=== PATIENT | male | born 1945 | race Caucasian/White ===

== ENCOUNTER → 2017-12-07 08:56 | Outpatient (CLI) | payer MEDICARE, SELFPAY ==
[2017-12-07 12:08] LABS: Absolute Neutrophil Count 3.5 X10^3/uL (2.0-7.7); Basophil# 0.02 X10^3/uL; Basophil% 0.3 % (0-1); Eosinophil# 0.15 X10^3/uL; Eosinophils% 2.6 % (0-5); Hematocrit 42.9 % (40-54); Hemoglobin 13.6 g/dl (13.0-16.5); Lymphocyte % 27.6 % (19-41); Mean Corp Hgb Conc 31.7 g/gl (32-36); Mean Corpuscular Hgb 25.4 pg (27.0-32.0); Mean Platelet Vol. 10.3 fl (6.2-12.0); Monocyte# 0.52 X10^3/uL; Neutrophil % 60.5 % (47-70); Platelet Count 204 K/mm3 (150-450); RBC Distribution Width CV 16.3 % (11.6-14.6); RBC Distribution Width SD 47.2 fl (35.1-43.9); Red Blood Count 5.36 M/mm3 (4.6-6.2); White Blood Count 5.8 K/mm3 (4.4-11.0)
[2017-12-07 12:10] LABS: POSITIVE COUNT NO; POSITIVE DIFFERENTIAL NO; POSITIVE MORPHOLOGY NO
[2017-12-07 12:35] LABS: ALB/GLOB Ratio 0.9 RATIO (0.9-2.4); AST(SGOT) 15 U/L (15-37); Alanine Aminotransfer ALT/SGPT 35 U/L (16-61); Albumin, Serum 3.4 g/dL (3.2-5.0); Alkaline Phosphatase 78 U/L (45-117); Anion Gap 10 (5-15); BUN 13 mg/dL (7-18); BUN/Creat Ratio 13.4 RATIO (10-20); Calcium,Total 8.5 mg/dL (8.5-10.1); Chloride 107 mmol/L (98-107); Cholesterol 143 mg/dL (200); Creatinine, Serum 0.97 mg/dL (0.70-1.30); EST Glomerular Filtration Rate 80 mL/min (>60); Est Glom Filt Rate - Afr Amer 97 mL/min (>60); Globulin 3.8 g/dL (2.2-4.2); Glucose 92 mg/dL (74-106); High Density Lipoprotein 22 mg/dL; PSA,Total - Annual Screen 1.01 ng/mL (0.00-4.00); Protein, Total 7.2 g/dL (6.4-8.2); Sodium Level 141 mmol/L (136-145); Triglycerides 182 mg/dL; Very Low Density Lipoprotein 36 mg/dL (5-40)
== END ==
PROVIDERS: Family Provider Family Medicine; PCP Family Medicine; Visit Provider Family Medicine
DX: Z00.01 Encounter for general adult medical examination with abnormal findings (principal); Z12.5 Encounter for screening for malignant neoplasm of prostate; I25.10 Atherosclerotic heart disease of native coronary artery without angina pectoris; I10 Essential (primary) hypertension; E78.5 Hyperlipidemia, unspecified
CPT/HCPCS: 36415; 80053; 80061; 84153; 85025; G0103

== ENCOUNTER → 2018-12-06 08:14 | Outpatient (CLI) | payer MEDICARE, OTHER, SELFPAY ==
[2018-12-06 12:38] LABS: Absolute Neutrophil Count 4.1 X10^3/uL (2.0-7.7); Basophil# 0.03 X10^3/uL; Basophil% 0.5 % (0-1); Eosinophil# 0.14 X10^3/uL; Eosinophils% 2.2 % (0-5); Hematocrit 44.7 % (40-54); Hemoglobin 14.1 g/dL (13.0-16.5); Lymphocyte % 23.8 % (19-41); Mean Corp Hgb Conc 31.5 g/dL (32-36); Mean Corpuscular Hgb 26.4 pg (27.0-32.0); Mean Corpuscular Volume 83.7 fL (80-94); Mean Platelet Vol. 11.1 fl (6.2-12.0); Monocyte# 0.55 X10^3/uL; Monocyte% 8.7 % (0-10); NRBC Flagged by Analyzer 0 % (0-5); Neutrophil # 4.05 X10^3/uL (2.7-7.7); Neutrophil % 64.5 % (47-70); Platelet Count 196 K/mm3 (150-450); RBC Distribution Width CV 15.9 % (11.6-14.6); RBC Distribution Width SD 48.8 fl (35.1-43.9); Red Blood Count 5.34 M/mm3 (4.6-6.2); White Blood Count 6.3 K/mm3 (4.4-11.0)
[2018-12-06 13:13] LABS: ALB/GLOB Ratio 1.2 RATIO (0.9-2.4); AST(SGOT) 18 U/L (15-37); Alanine Aminotransfer ALT/SGPT 32 U/L (16-61); Albumin, Serum 3.8 g/dL (3.2-5.0); Alkaline Phosphatase 73 U/L (45-117); Anion Gap 6 (5-15); BUN 16 mg/dL (7-18); BUN/Creat Ratio 14.7 RATIO (10-20); Calcium,Total 8.5 mg/dL (8.5-10.1); Chloride 108 mmol/L (98-107); Cholesterol 131 mg/dL (200); Creatinine, Serum 1.09 mg/dL (0.70-1.30); EST Glomerular Filtration Rate 70 mL/min (>60); Est Glom Filt Rate - Afr Amer 85 mL/min (>60); Globulin 3.3 g/dL (2.2-4.2); Glucose 107 mg/dL (74-106); High Density Lipoprotein 27 mg/dL; Potassium 4.1 mmol/L (3.5-5.1); Protein, Total 7.1 g/dL (6.4-8.2); Sodium Level 139 mmol/L (136-145); Triglycerides 126 mg/dL; Very Low Density Lipoprotein 25 mg/dL (5-40)
== END ==
PROVIDERS: Family Provider Family Medicine; PCP Family Medicine; Visit Provider Family Medicine
DX: I25.10 Atherosclerotic heart disease of native coronary artery without angina pectoris (principal); I10 Essential (primary) hypertension; E78.5 Hyperlipidemia, unspecified
CPT/HCPCS: 36415; 80053; 80061; 85025

== ENCOUNTER → 2018-12-09 14:26 | Outpatient (CLI) | payer MEDICARE, OTHER, SELFPAY ==
[2018-12-09 15:13] LABS: Hemoglobin A1c 5.7 % (4.2-6.3)
== END ==
PROVIDERS: Family Provider Family Medicine; PCP Family Medicine; Visit Provider Family Medicine
DX: R73.01 Impaired fasting glucose (principal)
CPT/HCPCS: 83036

== ENCOUNTER → 2019-09-12 06:17 | Outpatient (CLI) | payer MEDICARE, OTHER, SELFPAY ==
--- NOTE | 2019-09-12 06:24 | ECHOCS_ITS ---
Reason For Study: CAD, new onset DYSPNEA Procedure This was a 2D Doppler, Color Flow transthoracic echocardiogram. The study was technically difficult. Due to body habitus. Contrast injection was performed. Exam performed in department. Left Ventricle Mildly dilated left ventricle. Mild segmental systolic dysfunction (see wall motion). The estimated ejection fraction is 45 %. Diastolic function is indeterminate. Mid-inferoseptal : Hypokinetic. Mid- anteroseptal : Hypokinetic. Holmes : Hypokinetic. Right Ventricle Normal RV size. Normal systolic function. Atria Normal left atrium. Normal right atrium. No doppler evidence for ASD. Mitral Valve There is no mitral annular calcification. Normal mitral valve. Trivial mitral valve insufficiency. Tricuspid Valve Normal tricuspid valve. Trivial tricuspid valve insufficiency. Right ventricular systolic pressure estimated to be 22 mmHg. Aortic Valve Trisinus/trileaflet aortic valve. Normal aortic valve. Pulmonic Valve The pulmonic valve is not well visualized. Great Vessels Normal sized aortic root. Pericardium/Pleural No pericardial effusion. Medication Diluted definity 4.0ml given slow IV push to enhance endocardial definition. MMode/2D Measurements & Calculations LVIDd: 5.9 cm IVSd: 1.0 cm Ao root diam: 2.9 cm LVIDs: 4.2 cm LVPWd: 0.97 cm RVDd: 3.0 cm FS: 29.1 % LAV(MOD-bp): 77.4 ml LA A4 area: 21.8 cm2 LA dimension(2D): 4.0 cm LAV(MOD-bp) Indexed: 37.1 ml/m2 LAV(MOD-sp2): 77.0 ml LAV(MOD-sp4): 70.3 ml RA A4 area: 18.0 cm2 Time Measurements MV dec time: 0.20 sec Doppler Measurements & Calculations MV E max nathan: 82.3 cm/sec Lat Peak E' Nathan: 5.9 cm/sec Med Peak E' Nathan: 6.6 cm/sec MV A max nathan: 84.2 cm/sec E/E' lat: 13.9 E/E' med: 12.4 MV E/A: 0.98 Ao V2 max: 120.8 cm/sec LV V1 max: 120.1 cm/sec PA V2 max: 66.7 cm/sec Ao max P.8 mmHg LV V1 max P.8 mmHg TR max nathan: 217.3 cm/sec TR max P.9 mmHg Interpretation Summary The study was technically difficult. Contrast injection was performed. Mildly dilated left ventricle. Mild segmental systolic dysfunction (see wall motion). The estimated ejection fraction is 45 %. Trivial mitral valve insufficiency. Trivial tricuspid valve insufficiency. Right ventricular systolic pressure estimated to be 22 mmHg. Diastolic function is indeterminate. Ordering Physician: Dalton^Grace^^^ Referring Physician: Grace Hoffman Performed By: Yumiko Moffett, ADRIANA, RVT
--- NOTE | 2019-09-12 09:11 | STRESSREP_ITS ---
Stress Test Report Date: 09-12-2019 Procedure: Exercise tolerance test/imaging study Indications: Shortness of breath/dyspnea on exertion; CAD; PCI Consent: Per the patient Procedure: The patient exercised on a Alejandro protocol for 4 minutes and 30 seconds completing Stage I and 1 minute and 30 seconds of Stage II achieving a peak heart rate of 133 bpm (91 % predicted maximal heart rate) with a peak blood pressure 210/80 mmHg and a peak MET capacity of 6 METs. The baseline ECG demonstrated normal sinus rhythm; low voltage QRS. The peak exercise ECG demonstrated somatic/motion artifact with no obvious ECG changes. There was a rare PVC during exercise and recovery and an isolated ventricular couplet during recovery. The functional capacity was considered decreased. There was no complaint of chest discomfort during exercise or recovery. The examination was discontinued secondary to shortness of breath/dyspnea. Impression: 1. Technically adequate (percent predicted maximal heart rate greater than 85%) exercise tolerance test 2. Peak exercise ECG with somatic/motion artifact with no obvious ECG changes 3. There was a rare PVC during exercise and recovery and an isolated ventricular couplet during recovery 4. Blood pressure response: Exaggerated blood pressure response 5. Nuclear images pending Myocardial perfusion imaging study: Technique: The patient was injected with 14.5 mCi of technetium 99m Cardiolite and subsequently rest SPECT Cardiolite nuclear imaging was obtained in the horizontal long, vertical long, and short axis views. The patient exercised on a Alejandro protocol for 4 minutes and 30 seconds completing Stage I and 1 minute and 30 seconds of Stage II achieving a peak heart rate of 133 bpm (91 % predicted ma ximal heart rate) with a peak blood pressure 210/80 mmHg and a peak MET capacity of 6 METs. The patient was injected with 44.1 mCi of technetium 99m Cardiolite and subsequently stress SPECT Cardiolite nuclear imaging was obtained in the horizontal long, vertical long, and short axis views. A gated Cardiolite study at peak stress was obtained. Interpretation: Rest and stress SPECT Cardiolite nuclear imaging status post realignment, normalization, and attenuation correction, demonstrates the absence of myocardial perfusion/tracer uptake in portions of the basal to distal interventricular septal segments, distal anterior, anterior apical, and septal apical segments without significant change between rest and stress. There is diminished end systolic thickening and brightening in the aforementioned areas. The gated Cardiolite study demonstrates diminished myocardial thickening and inward wall motion. The reported LVEF is 48 %. Impression: 1. Rest and stress SPECT Cardiolite nuclear imaging demonstrate myocardial perfusion changes appearing compatible with an area of previous myocardial injury/infarction involving portions of the interventricular septum, distal anterior, anteroapical, and septal apical segments with no myocardial perfusion changes considered diagnostic for associated stress-induced myocardial ischemia. 2. The gated Cardiolite study reports an LVEF of 48 %. This note was generated with [employer] software. It may contain incorrect words, spelling, and punctuation that were not noted in checking the note before signing.
== END ==
PROVIDERS: PCP Family Medicine; Referring Provider Family Medicine; Visit Provider Family Medicine
DX: I25.10 Atherosclerotic heart disease of native coronary artery without angina pectoris (principal)
CPT/HCPCS: 78452; 93017; 93306; A9500; Q9957; A4216; C8929; J2785

== ENCOUNTER → 2019-09-13 15:36 | Outpatient (CLI) | payer MEDICARE, OTHER, SELFPAY ==
[2019-09-13 14:51] VITALS: BMI 33.1
--- NOTE | 2019-09-13 15:39 | RAD_ITS ---
STUDY: X-RAY CHEST REASON FOR EXAM: Male, 74 years old. CHF, SOB TECHNIQUE: Frontal and lateral views of the chest. COMPARISON: None. FINDINGS: The lungs are clear and expanded. Tiny calcified granuloma of the mid right lung. There is no demonstrated pleural abnormality. Normal size heart. Normal mediastinum and carly. Normal visualized pulmonary arteries. Normal visualized aortic arch and descending thoracic aorta. There are diffuse degenerative changes of the visualized thoracic spine. Normal visualized ribs, clavicles, and shoulders. There is no demonstrated abnormality of the visualized soft tissue structures of the upper abdomen. RAD/Chest PA and Lateral IMPRESSION: No definite acute or significant abnormality seen. Electronically Signed: Luke Henry MD at 18:15 EDT , Service support ,
[2019-09-13 17:00] LABS: Absolute Lymphocyte Count 1.74 X10^3/uL (0.83-4.51); Absolute Neutrophil Count 5.1 X10^3/uL (2.0-7.7); Basophil# 0.03 X10^3/uL; Basophil% 0.4 % (0-1); Eosinophil# 0.15 X10^3/uL; Eosinophils% 1.9 % (0-5); Hematocrit 44.8 % (40-54); Hemoglobin 14.1 g/dL (13.0-16.5); Lymphocyte # 1.74 X10^3/ul (4.0); Lymphocyte % 22.4 % (19-41); Mean Corp Hgb Conc 31.5 g/dL (32-36); Mean Corpuscular Hgb 26.5 pg (27.0-32.0); Mean Corpuscular Volume 84.2 fL (80-94); Mean Platelet Vol. 10.4 fl (6.2-12.0); Monocyte# 0.74 X10^3/uL; Monocyte% 9.5 % (0-10); NRBC Flagged by Analyzer 0 % (0-5); Neutrophil # 5.09 X10^3/uL (2.7-7.7); Neutrophil % 65.5 % (47-70); Platelet Count 236 K/mm3 (150-450); RBC Distribution Width CV 15.9 % (11.6-14.6); RBC Distribution Width SD 48.4 fl (35.1-43.9); Red Blood Count 5.32 M/mm3 (4.6-6.2); White Blood Count 7.8 K/mm3 (4.4-11.0)
[2019-09-13 17:23] LABS: Anion Gap 5 (5-15); BUN 15 mg/dL (7-18); BUN/Creat Ratio 17.4 RATIO (10-20); Calcium,Total 8.8 mg/dL (8.5-10.1); Chloride 109 mmol/L (98-107); Creatinine, Serum 0.86 mg/dL (0.70-1.30); EST Glomerular Filtration Rate 92 mL/min (>60); Est Glom Filt Rate - Afr Amer 111 mL/min (>60); Glucose 90 mg/dL (74-106); Potassium 4.3 mmol/L (3.5-5.1); Sodium Level 140 mmol/L (136-145)
== END ==
PROVIDERS: PCP Family Medicine; Referring Provider Internal Medicine Cardiovascular Disease; Visit Provider Internal Medicine Cardiovascular Disease
DX: I25.5 Ischemic cardiomyopathy (principal); I25.10 Atherosclerotic heart disease of native coronary artery without angina pectoris; Z95.5 Presence of coronary angioplasty implant and graft
CPT/HCPCS: 36415; 71046; 80048; 85025

== ENCOUNTER 2019-09-18 08:45 | Day surgery (SDC) | payer MEDICARE, OTHER, SELFPAY ==
[2019-09-13 14:51] VITALS: BMI 33.1
[2019-09-15 10:36] VITALS: BMI 33.1
--- NOTE | 2019-09-18 10:20 | CL.D_ITS ---
Patient Name: JAMES PALMA V Study Date: 09/18/2019 Performing: Liam Laguna MD Ht: 68.11 inches 173 cm : 1945 Wt: 218.26 lbs 99 kg Age: 74 Gender: male BSA: 2.12 PROCEDURE(S) PERFORMED OF20-ILT/COR/LV CLINICAL PROFILE AND INDICATIONS Indications: Stable Known CAD Heart Failure: None Stress/Imaging Date: 09/12/2019Stress Test with SPECT MPI: Indeterminant CAD Presentations: Other: SOB CONCLUSIONS Previously placed stents in the right coronary artery, left anterior descending artery, and obtuse ma rginal branch and noted to be patent. There is mild diffuse disease. No high-grade obstructive altagracia nary disease is noted. Normal left ventricular end-diastolic pressure is noted. RECOMMENDATIONS Medical therapy DESCRIPTION OF PROCEDURE The patient arrived to the procedure lab. The risks and benefits of the procedure as well as a full d escription of our services here and current unavailability of surgical backup were fully explained to the patient and/or their significant other prior to the catheterization. The Timeout was completed, verifying the correct patient and procedure. The patient's procedural site was prepped and draped in the usual fashion. Local anesthetic was given subcutaneously to right radial region with Lidocaine 2% . Using a modified Seldinger technique, arterial access was obtained via the right radial artery, a 6 Fr sheath was inserted. Right Coronary Artery selective angiography was then performed in multiple v iews using a 5 Fr. 4.0 Roy catheter. Left Coronary Artery selective angiography was performed in mu ltiple views using a 5 Fr. 4.0 Roy catheter. Left Ventriculography was performed in URRUTIA projection using a 5 Fr. Pigtail catheter. LV to AO pullback pressures were then recorded.The arterial sheath was pulled and a TR Band was applied for hemostasis. 10cc of air CORONARY ANGIOGRAPHY DOMINANCE: Right Dominant LEFT HEART ASSESSMENT Left Ventricular Ejection Fraction: by LV Gram 55 % Normal Left Ventricular systolic function LEFT MAIN: Mild calcification, Non-obstructive LEFT ANTERIOR DESCENDING ARTERY: MID LAD: Previously placed stent is patent DISTAL LAD: Mild luminal irregularities less than 30% DIAGONAL 1: Ostial - 50 % Stenosis CIRCUMFLEX ARTERY: Mild luminal irregularities less than 30% DISTAL CIRC: Mild luminal irregularities OM 2: Proximal - Previously placed stent is patent, Proximal - Moderate luminal irregularities up to 50% RIGHT CORONARY ARTERY: Mild luminal irregularities less than 30% MID RCA: Previously placed stent is patent COMPLICATIONS No Complications PROCEDURE MEDICATIONS Versed 1 mg IV Fentanyl 50 mcg IV Oxygen: 2 L/min via nasal cannula Heparin diluted in 23cc Heparinized saline. Patient given 10cc IA of this solution. 09/18/2019 09:53: 14 Verapamil 2.5mg, Ntg 100mcgs, 2000 units of Heparin diluted in 23cc Heparinized saline. Patient give n 10cc IA of this solution. 09/18/2019 09:53:14 SUMMARY OF HEMODYNAMIC DATA Time AIR REST ECG 09:06:44 AO 96/61 (76) SA 09:53:59 LV 114/0, 7 10:03:20 LV 110/0, 7 10:03:27 LVp 115/2, 9 10:04:13 LV 112/6, 11 10:04:15 LVp 115/2, 9 10:04:18 AOp 124/-2 (38) 10:04:19 Signed By Liam Laguna MD On 09/18/2019 10:19:14 Liam Laguna MD
== END 2019-09-18 11:40 | disposition home or self-care (01) ==
LOC: CLSP 08:46
PROVIDERS: PCP Family Medicine; Referring Provider Internal Medicine Cardiovascular Disease; Visit Provider Internal Medicine Cardiovascular Disease
DX: I25.119 Atherosclerotic heart disease of native coronary artery with unspecified angina pectoris (principal); I25.5 Ischemic cardiomyopathy; I25.2 Old myocardial infarction; I10 Essential (primary) hypertension; E78.5 Hyperlipidemia, unspecified; M19.90 Unspecified osteoarthritis, unspecified site; E66.9 Obesity, unspecified; Z68.33 Body mass index [BMI] 33.0-33.9, adult; Z95.5 Presence of coronary angioplasty implant and graft; Z79.82 Long term (current) use of aspirin; Z79.02 Long term (current) use of antithrombotics/antiplatelets; Z79.899 Other long term (current) drug therapy; Z87.891 Personal history of nicotine dependence
CPT/HCPCS: 93458; 99152; 99153; J7040; Q9967; C1769; C1894

== ENCOUNTER → 2019-12-06 08:43 | Outpatient (CLI) | payer MEDICARE, OTHER, SELFPAY ==
[2019-09-15 10:36] VITALS: BMI 33.1
[2019-12-06 13:00] LABS: Cholesterol 129 mg/dL (200); High Density Lipoprotein 24 mg/dL; PSA,Total - Annual Screen 0.96 ng/mL (0.00-4.00); Triglycerides 115 mg/dL; Very Low Density Lipoprotein 23 mg/dL (5-40)
== END ==
PROVIDERS: PCP Family Medicine; Visit Provider Family Medicine
DX: I25.10 Atherosclerotic heart disease of native coronary artery without angina pectoris (principal); Z12.5 Encounter for screening for malignant neoplasm of prostate
CPT/HCPCS: 36415; 80061; 84153; G0103

== ENCOUNTER → 2019-12-08 11:48 | Outpatient (CLI) | payer MEDICARE, OTHER, SELFPAY ==
[2019-12-08 11:11] VITALS: BMI 33.0
[2019-12-08 12:41] LABS: BNP,B-Type NATRIURETIC PEPTIDE 110.4 pg/mL (0-100)
[2019-12-08 12:49] LABS: Anion Gap 4 (5-15); BUN 10 mg/dL (7-18); BUN/Creat Ratio 10.6 RATIO (10-20); Chloride 109 mmol/L (98-107); Creatinine, Serum 0.94 mg/dL (0.70-1.30); EST Glomerular Filtration Rate 83 mL/min (>60); Est Glom Filt Rate - Afr Amer 100 mL/min (>60); Glucose 105 mg/dL (74-106); Potassium 4.1 mmol/L (3.5-5.1); Sodium Level 139 mmol/L (136-145)
== END ==
PROVIDERS: PCP Family Medicine; Referring Provider Internal Medicine Cardiovascular Disease; Visit Provider Internal Medicine Cardiovascular Disease
DX: R06.00 Dyspnea, unspecified (principal); E78.5 Hyperlipidemia, unspecified
CPT/HCPCS: 36415; 80048; 83880

== ENCOUNTER → 2019-12-13 | Outpatient (CLI) | payer MEDICARE, OTHER, SELFPAY ==
[2019-12-08 11:11] VITALS: BMI 33.0
--- NOTE | 2019-12-13 08:00 | CT_ITS ---
STUDY: CT CHEST WITH CONTRAST REASON FOR EXAM: Male, 74 years old. SOB X 3 MONTHS. HX OF 4 HEART STENTS. HTN RADIATION DOSAGE (If Supplied By Facility): CTDIvol = ( 14.87 ) mGy, DLP = ( 602.80 ) mGycm TECHNIQUE: Transaxial imaging was performed following intravenous administration of IV 100mL Isovue-370. Multiplanar coronal and sagittal images were reformatted. Individualized dose optimization techniques were used for this CT. COMPARISON: None. FINDINGS: Calcification of the right thyroid lobe. Tiny low-density nodule of the left thyroid lobe measures 4 mm. Benign calcified granuloma in the lateral right lower lobe. Scattered areas of mosaic attenuation throughout multiple pulmonary lobes most compatible with air trapping although pneumonitis/edema can have a similar appearance. There is no demonstrated pleural abnormality. There is mild dilation of the left ventricle. Coronary artery calcifications/stents are identified. Normal mediastinum. Normal hilar regions. Normal enhanced pulmonary arteries. Normal aorta arch and descending thoracic aorta. There are multi-level degenerative changes of the thoracic spine. Subcentimeter cyst of the left hepatic lobe is compatible with a simple cyst. Benign, incidental finding; no specific imaging workup recommended according to current ACR guidelines. CT/Chest WITH Contrast IMPRESSION: 1. Multilobar mosaic attenuation may represent air-trapping versus pneumonitis/edema. No pleural effusion. 2. Mild left tracheal dilation. Electronically Signed: Nam Tobar MD ([place]) at 10:32 EDT , Service support ,
== END | disposition home or self-care (01) ==
LOC: CT 07:48
PROVIDERS: PCP Family Medicine; Referring Provider Internal Medicine Cardiovascular Disease; Visit Provider Internal Medicine Cardiovascular Disease
DX: R06.00 Dyspnea, unspecified (principal)
CPT/HCPCS: 71260; Q9967

== ENCOUNTER → 2020-10-24 16:11 | Outpatient (CLI) | payer MEDICARE, OTHER, SELFPAY ==
[2019-12-08 11:11] VITALS: BMI 33.0
--- NOTE | 2020-10-24 16:25 | MRI_ITS ---
STUDY: MRI THORACIC SPINE WITHOUT CONTRAST REASON FOR EXAM: Male, 75 years old. PERSISTENT MID LOWER THORACIC DISCOMFORT TECHNIQUE: Standardized fat and water weighted pulse sequences were obtained in the sagittal and axial planes. COMPARISON: None. FINDINGS: Normal kyphosis of the thoracic spine. There is no substantial scoliosis. T1-2, T2-3, T3-4, T4-5, T5-6, T6-7, T7-8, T8-9, T9-10, T10-11, T11-12: At T7/T8, there is a moderate-sized right paracentral disc protrusion which produces moderate spinal stenosis with abutment of the right hemicord. At T8/T9, there is a moderate-sized left paracentral disc extrusion which produces moderate spinal stenosis with abutment of the left hemicord. Normal visualized thoracic cord. Normal conus medullaris that terminates at the L1.. The soft tissue structures are unremarkable. MRI/Spine Thoracic (Routine) IMPRESSION: Degenerative disc disease as described above. Electronically Signed: Xander Wilson MD at 14:18 EDT Tel , Service support ,
== END ==
PROVIDERS: PCP Family Medicine; Referring Provider Family Medicine; Visit Provider Family Medicine
DX: M51.34 Other intervertebral disc degeneration, thoracic region (principal)
CPT/HCPCS: 72146

== ENCOUNTER → 2021-10-21 | Outpatient (CLI) | payer MEDICARE, OTHER, SELFPAY ==
[2021-10-21 12:27] LABS: Anion Gap 4 (5-15); BUN 14 mg/dL (7-18); BUN/Creat Ratio 11.2 RATIO (10-20); Chloride 112 mmol/L (98-107); Creatinine, Serum 1.25 mg/dL (0.70-1.30); EST Glomerular Filtration Rate 60 mL/min (>60); Est Glom Filt Rate - Afr Amer 72 mL/min (>60); Glucose 117 mg/dL (74-106); Potassium 4.3 mmol/L (3.5-5.1); Sodium Level 141 mmol/L (136-145)
[2021-10-21 12:37] LABS: BNP,B-Type NATRIURETIC PEPTIDE 37.8 pg/mL (0-100)
== END | disposition home or self-care (01) ==
LOC: LAB 11:38
PROVIDERS: PCP Family Medicine; Referring Provider Nurse Practitioner Family; Visit Provider Nurse Practitioner Family
DX: R06.00 Dyspnea, unspecified (principal)
CPT/HCPCS: 36415; 80048; 83880

== ENCOUNTER 2021-12-09 15:30 | Outpatient (RCR) | payer MEDICARE, OTHER, SELFPAY ==
--- NOTE | 2021-11-25 16:24 | HP.PTEVAL_ITS ---
Patient's Visit Information JAMES PALMA is a 76 year old M referred to Physical Therapy by Dr. Edilma Caban MD with a diagnosis of BACK PAIN. Date of Evaluation: 11/25/21 Physical Therapist: Art Do, PT, Cert MDT, OCS - Visit Plan Frequency: 2x /Week Duration: 4 Weeks Plan: PT INTERVETIONS POSTURAL EX'S , THORACIC MOBILITY ,STRENGTHNEING AND MANUAL THERAPY - Subjective This 76 y/o female presents to physical therapy with back pain. Patient has had lumbar pain for ~ 1 1/2 . Patient started with injections last. but had to go to [place] . Then when return seen Dr Calderón had one injections 2 months and recently seen patient recommended PT . Prescribed Lyrica which helped. Location of thoracic spine had x-rays showed DDD thoracic spine. Aggravating factors bending ,lifting ,work in yard ,twisting. Patient's alleviating factors with walking and standing. Denies paresthesia/tingling described as throbbing pain. Bowel/bladder-. Coughing/sneezing -. Injury 10 years ago felt pop which worsen. Patient sleeping okay. Patient plans to leave for [place] in 3 weeks. Patient symptoms affects QOL and function. Patient goal decrease pain. SOCIAL: . VOCATION:retired - Pain Bilateral Back Pain Intensity (Out of 10): 2 Pain Intensity Range: 10 - Objective POSTURE: mild forward posture. GAIT: reciprocal pattern. NEURO: denies paresthesia/tingling. PLAPTION: tender scapular region ,paraspinals left. AROM: BUE WFL. THORCAIC ROM: extension mod/severe loss , flexion min/mod loss ,rotation mod loss. MMT: BUE 4/5 ,quads/hams/hip 4/5 ,ankle 4/5. FLEXABILITY: hamstrings min tight - Special Tests Thoracic Sitting: Flexion - Mechanical Response: No effect Thoracic Sitting: Flexion - Symptoms During Testing: No effect Thoracic Sitting: Flexion - Symptoms After Testing: No effect Thoracic Sitting: Extension - Mechanical Response: No effect Thoracic Sitting: Extension - Symptoms During Testing: Increases Thoracic Sitting: Extension - Symptoms After Testing: No worse Comments:: ER Thoracic Sitting: Right rotation - Mechanical Response: No effect Thoracic Sitting: Right Rotation - Symptoms During Testing: No effect Thoracic Sitting: Right Rotation - Symptoms After Testing: No effect Thoracic Sitting: Left rotation - Mechanical Response: No effect Thoracic Sitting: Left Rotation - Symptoms During Testing: No effect Thoracic Sitting: Left Rotation - Symptoms After Testing: No effect L/S Slump test left side: Negative L/S Slump test right side: Negative - Balance/Special Test Scores Oswestry Low Back Score: 26 - Goals Goal 1:: I with HEP for thoracic spine Goal Time Frame: 4-6 Weeks Goal 2:: Patient to demonstrate 50% improvement with decrease pain and improved function Goal Time Frame: 4-6 Weeks Goal 3:: Patient to improve thoracic ROM for function of recovery to do yard work and golf Goal Time Frame: 4-6 Weeks Goal 4:: Patient to improve back oswesty score by 5 point or > to improve QOL Goal Time Frame: 4-6 Weeks - Rehabilitation Potential Physical Therapy Diagnosis: This patient has thoracic pain with decrease rom ,poor mobility impairs function thus benefit from skileed Rehabilitation Potential: Good - Anticipated Interventions Patient/Client Instruction: Educate patient on: Condition, Plan of Care For the Purpose of:: To decrease pain, To increase ROM, To improve muscle performance and motor function, To improve ability to perform ADL's, To increase tolerance to activity/condition/position, To improve ability of physical actions for home/community/work/leisure, To improve health of tissue, To decrease soft tissue restriction, To increase flexibility/ROM, To reduce risk of recurrence, To prevent re-injury, To improve tolerance to ADL's Therapeutic Exercise to Include: Strength training, Body mechanics, Active ROM, Dynamic Lumbar Stabilization Comment: THORACIC For the Purpose of:: To decrease pain, To increase ROM, To improve muscle performance and motor function, To increase tolerance to activity/condition/position, To improve ability of physical actions for home/community/work/leisure, To improve health of tissue, To decrease soft tissue restriction, To increase flexibility/ROM, To prevent re-injury, To improve tolerance to ADL's Manual Therapy Techniques to Include: Mobilization, Soft tissue mobilization For the Purpose of:: To decrease pain, To increase ROM, To improve health of tissue, To decrease soft tissue restriction TENS: Yes IF ES: Yes Cryotherapy (ice pack, ice massage): Yes Thermo therapy (hot pack): Yes Ultrasound (thermal/non thermal): Yes For the Purpose of:: To decrease pain, To increase ROM, To improve nutrient delivery to tissue, To increase oxygenation perfusion, To improve health of t issue, To decrease soft tissue restriction, To increase flexibility/ROM Thank you for the opportunity to evaluate your patient. For Medicare and Medicare HMO plans, please review the plan of care and approve it. It will need to be FAXED BACK to us at [phone] for Medicare purposes. For Medicare only, by signing this I certify the plan of care. Please let me know if there are questions or concerns regarding this plan of care. Physician Signature: Date:
--- NOTE | 2022-02-24 12:40 | HP.PT.NRP ---
JAMES PALMA was seen in my office for initial evaluation on 11/25/21. The following Plan of Care was established for this patient: Initial Frequency: 2x /Week Initial Duration: 4 Weeks Patient/Client Instruction: Educate patient on: Condition, Plan of Care For the Purpose of:: To decrease pain, To increase ROM, To improve muscle performance and motor function, To improve ability to perform ADL's, To increase tolerance to activity/condition/position, To improve ability of physical actions for home/community/work/leisure, To improve health of tissue, To decrease soft tissue restriction, To increase flexibility/ROM, To reduce risk of recurrence, To prevent re-injury, To improve tolerance to ADL's Therapeutic Exercise to Include: Strength training, Body mechanics, Active ROM, Dynamic Lumbar Stabilization For the Purpose of:: To decrease pain, To increase ROM, To improve muscle performance and motor function, To increase tolerance to activity/condition/position, To improve ability of physical actions for home/community/work/leisure, To improve health of tissue, To decrease soft tissue restriction, To increase flexibility/ROM, To prevent re-injury, To improve tolerance to ADL's Manual Therapy Techniques to Include: Mobilization, Soft tissue mobilization For the Purpose of:: To decrease pain, To increase ROM, To improve health of tissue, To decrease soft tissue restriction TENS: Yes IF ES: Yes Cryotherapy (ice pack, ice massage): Yes Thermo therapy (hot pack): Yes Ultrasound (thermal/non thermal): Yes For the Purpose of:: To decrease pain, To increase ROM, To improve nutrient delivery to tissue, To increase oxygenation perfusion, To improve health of tissue, To decrease soft tissue restriction, To increase flexibility/ROM This patient was last seen in our office . Pertinent comments regarding their Physical therapy will appear below: Patient seen for PT for back pain for DLS and postural ex's thus is d/c At this point I will be discontinuing this patient from physical therapy. I would be happy to see this patient again in the future if found appropriate by the physician. Thank you! Art Do, PT, Cert MDT, OCS Balance/Gait/Functional tests - Balance/Special Test Scores Oswestry Low Back Score: 7
== END 2021-12-09 19:00 | disposition home or self-care (01) ==
LOC: PT 15:30
PROVIDERS: PCP Family Medicine; Referring Provider Anesthesiology Pain Medicine; Visit Provider Anesthesiology Pain Medicine
DX: M54.9 Dorsalgia, unspecified (principal)
CPT/HCPCS: 97110; 97162

== ENCOUNTER → 2021-12-10 | Outpatient (CLI) | payer MEDICARE, OTHER, SELFPAY ==
[2021-12-10 12:26] LABS: Absolute Lymphocyte Count 1.61 X10^3/uL (0.83-4.51); Absolute Neutrophil Count 3.4 X10^3/uL (2.0-7.7); Basophil# 0.04 X10^3/uL; Basophil% 0.7 % (0-1); Eosinophil# 0.13 X10^3/uL; Eosinophils% 2.3 % (0-5); Hematocrit 41.9 % (40-54); Hemoglobin 14.4 g/dL (13.0-16.5); Lymphocyte # 1.61 X10^3/ul (0.83-4.51); Lymphocyte % 28.7 % (19-41); Mean Corp Hgb Conc 34.4 g/dL (32-36); Mean Corpuscular Hgb 31.6 pg (27.0-32.0); Mean Corpuscular Volume 91.9 fL (80-94); Mean Platelet Vol. 10.8 fl (6.2-12.0); Monocyte# 0.44 X10^3/uL; Monocyte% 7.8 % (0-10); NRBC Flagged by Analyzer 0 % (0-5); Neutrophil # 3.37 X10^3/uL (2.7-7.7); Neutrophil % 60.1 % (47-70); Platelet Count 183 K/mm3 (150-450); RBC Distribution Width CV 14.7 % (11.6-14.6); RBC Distribution Width SD 49.5 fl (35.1-43.9); Red Blood Count 4.56 M/mm3 (4.6-6.2); White Blood Count 5.6 K/mm3 (4.4-11.0)
[2021-12-10 13:01] LABS: AST(SGOT) 13 U/L (15-37); Alanine Aminotransfer ALT/SGPT 27 U/L (16-61); Albumin, Serum 3.5 g/dL (3.2-5.0); Alkaline Phosphatase 57 U/L (45-117); Anion Gap 5 (5-15); BUN 16 mg/dL (7-18); BUN/Creat Ratio 14.3 RATIO (10-20); Chloride 111 mmol/L (98-107); Cholesterol 128 mg/dL (200); Creatinine, Serum 1.12 mg/dL (0.70-1.30); EST Glomerular Filtration Rate 68 mL/min (>60); Est Glom Filt Rate - Afr Amer 82 mL/min (>60); Globulin 3.4 g/dL (2.2-4.2); Glucose 100 mg/dL (74-106); High Density Lipoprotein 25 mg/dL; Protein, Total 6.9 g/dL (6.4-8.2); Sodium Level 142 mmol/L (136-145); Triglycerides 168 mg/dL; Very Low Density Lipoprotein 34 mg/dL (5-40)
== END | disposition home or self-care (01) ==
LOC: BFHLAB 08:51
PROVIDERS: PCP Family Medicine; Visit Provider Family Medicine
DX: I25.10 Atherosclerotic heart disease of native coronary artery without angina pectoris (principal); I10 Essential (primary) hypertension; Z12.5 Encounter for screening for malignant neoplasm of prostate
CPT/HCPCS: 36415; 80053; 80061; 84153; 85025; G0103

== ENCOUNTER → 2021-12-15 | Outpatient (CLI) | payer MEDICARE, OTHER, SELFPAY ==
--- NOTE | 2021-12-15 10:27 | RAD_ITS ---
STUDY: X-RAY CHEST REASON FOR EXAM: Male, 76 years old. COUGH TECHNIQUE: PA or AP and lateral COMPARISON: 09/13/2019. 3:48 PM. FINDINGS: 3 mm calcified granuloma lateral right mid lung is stable. Remainder of lungs is clear. There is no demonstrated pleural abnormality. Normal size heart. Normal mediastinum and carly. Normal visualized pulmonary arteries. Normal visualized aortic arch and descending thoracic aorta. Moderate degenerative changes mid thoracic spine mild upper and lower thoracic spine. Normal visualized ribs, clavicles, and shoulders. There is no demonstrated abnormality of the visualized soft tissue structures of the upper abdomen. RAD/Chest PA and Lateral IMPRESSION: Stable 3 mm calcified granuloma lateral right mid lung. Electronically Signed: Jake Turner MD, ALEM at 11:01 EDT ,
== END | disposition home or self-care (01) ==
LOC: MTRAD 10:26
PROVIDERS: PCP Family Medicine; Referring Provider Family Medicine; Visit Provider Family Medicine
DX: R05.9 Cough, unspecified (principal)
CPT/HCPCS: 71046

== ENCOUNTER → 2022-07-09 | Outpatient (CLI) | payer MEDICARE, OTHER, SELFPAY ==
--- NOTE | 2022-07-09 17:06 | MRI_ITS ---
INDICATION: pain R upper back by scapula EXAMINATION: MRI - MR Spine Thoracic W/O Contrast TECHNIQUE: Multiplanar and multisequence MR images of the thoracic spine. IV Contrast Dosage and Agent: None. COMPARISON: MRI thoracic spine 10/24/2020 FINDINGS: VERTEBRAE: No fracture. No destructive marrow lesions. VERTEBRAL ALIGNMENT: Normal. There is preservation of the normal thoracic kyphosis. DISCS: Normal disc height and morphology. Stable 2 mm right paracentral disc protrusion at T7-8. Stable 2 mm left paracentral disc protrusion at T8-9. Both encroach on the ventral aspect of the spinal cord. CORD: Unremarkable in signal and morphology. Normal conus medullaris. SOFT TISSUES: Unremarkable. MRI/Spine Thoracic (Routine) IMPRESSION: Stable examination with stable 2 mm disc protrusions at T7-8 and T8-9 as above. Electronically Signed: Nando Omalley MD at 0:16 EDT ,
== END | disposition home or self-care (01) ==
LOC: MRI 16:54
PROVIDERS: PCP Family Medicine; Referring Provider Orthopaedic Surgery; Visit Provider Orthopaedic Surgery
DX: M51.24 Other intervertebral disc displacement, thoracic region (principal)
CPT/HCPCS: 72146

== ENCOUNTER 2022-10-15 13:39 | Observation (INO) | payer MEDICARE, OTHER, SELFPAY ==
[2022-10-15] VITALS (7 sets, daily range): BP systolic 118–168; BP diastolic 62–89; PULSE 51–64; RESP 16–18; TEMP 36.2–36.6; O2SAT 92–97; BMI 31.0; BMI 29.9
--- NOTE | 2022-10-15 14:04 | CT_ITS ---
STUDY: CT BRAIN WITHOUT CONTRAST REASON FOR EXAM: Male, 77 years old. Paresthesias. Dizziness. Hypertension. RADIATION DOSAGE (If Supplied By Facility): CTDIvol = ( 44.99 ) mGy, DLP = ( 812.98 ) mGycm TECHNIQUE: Transaxial CT imaging of the brain was performed without administration of intravenous contrast material. Individualized dose optimization techniques were used for this CT. COMPARISON: No relevant priors. FINDINGS: Normal soft tissue structures. Normal calvarium. There is mild cerebral atrophy with widening of the extra-axial spaces and ventricular dilatation. There are areas of decreased attenuation within the white matter tracts of the supratentorial brain, consistent with microvascular disease changes. Normal basal ganglia and thalami. Normal brainstem. Normal cerebellum. There is no intracranial hemorrhage. There are no findings of an acute ischemic infarction. Normal visualized paranasal sinuses. CT/Brain/Head without Contrast IMPRESSION: Chronic involutional changes of the brain. Electronically Signed: Srikanth Pope MD at 14:34 EDT ,
--- NOTE | 2022-10-15 14:05 | EKG12_ITS ---
Test Reason : NEURO Blood Pressure : / mmHG Vent. Rate : 054 BPM Atrial Rate : 054 BPM P-R Int : 168 ms QRS Dur : 092 ms QT Int : 446 ms P-R-T Axes : 031 -42 060 degrees QTc Int : 422 ms Sinus bradycardia Left axis deviation Minimal voltage criteria for LVH, may be normal variant ( R in aVL ) Abnormal ECG No previous ECGs available Confirmed by MAXIMO PALM, NITESH ([id number]), editorial manager ELENA KULKARNI ([id number]) on 12/25/2022 7:00:59 AM Referred By: Confirmed By:NITESH MARSH MD
[2022-10-15 14:07] LABS: Bedside Glucose 128 mg/dL (74-106)
[2022-10-15 14:15] LABS: Absolute Lymphocyte Count 2.02 X10^3/uL (0.83-4.51); Absolute Neutrophil Count 6.1 X10^3/uL (2.0-7.7); Basophil# 0.06 X10^3/uL; Basophil% 0.6 % (0-1); Eosinophil# 0.17 X10^3/uL; Eosinophils% 1.8 % (0-5); Hematocrit 47.4 % (40-54); Hemoglobin 15.8 g/dL (13.0-16.5); Lymphocyte # 2.02 X10^3/ul (0.83-4.51); Lymphocyte % 21.8 % (19-41); Mean Corp Hgb Conc 33.3 g/dL (32-36); Mean Corpuscular Volume 89.9 fL (80-94); Mean Platelet Vol. 10.4 fl (6.2-12.0); Monocyte# 0.86 X10^3/uL; Monocyte% 9.3 % (0-10); NRBC Flagged by Analyzer 0 % (0-5); Neutrophil # 6.12 X10^3/uL (2.7-7.7); Neutrophil % 66.1 % (47-70); Platelet Count 209 K/mm3 (150-450); RBC Distribution Width CV 14.6 % (11.6-14.6); RBC Distribution Width SD 47.8 fl (35.1-43.9); Red Blood Count 5.27 M/mm3 (4.6-6.2); White Blood Count 9.3 K/mm3 (4.4-11.0)
--- NOTE | 2022-10-15 14:22 | EX.ED.DYSGE1 ---
HPI History of Present Illness Chief Complaint: Neuro S/Sx Informant: patient Onset/Context/Timing Onset: Weeks (2) Timing: Intermittent Quality: Lightheaded Location: Generalized Worsened by: Standing Relieved by: Nothing Narrative Narrative: Patient presents with dizziness that has been intermittent over the last 2 weeks. Patient states that it is a lightheaded type feeling. Patient states it is worse whenever he stands up. Patient states he has to grab onto things to keep him from passing out. Patient states that today he was walking and noted some numbness to his right arm. Patient denies any weakness. Patient states he was able to move his right arm. Patient states that he was trying to get the feeling back by moving his arm. Patient denies any chest pain or shortness of breath. Patient denies any nausea or vomiting. Patient has a history of prior back pain but denies any new back pain. Patient denies any neck pain. [facility] Medical History (Updated 10/15/22 @ 17:[address] 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) Home Medications aspirin 81 mg tablet,delayed release (Adult Aspirin Regimen) 81 mg PO DAILY 09/13/19 [History Last Taken 10/13/22] celecoxib 200 mg capsule 200 mg PO DAILY 10/21/21 [History Last Taken 10/15/22] niacin 500 mg tablet 500 mg PO DAILY 10/21/21 [History Last Taken 10/13/22] carvedilol 25 mg tablet 25 mg PO BID #180 tabs 10/31/21 [Rx Last Taken 10/15/22] clopidogrel 75 mg tablet 75 mg PO DAILY #90 tabs 10/31/21 [Rx Last Taken 10/15/22] isosorbide mononitrate 30 mg tablet,extended release 24 hr 30 mg PO DAILY #90 tabs 10/31/21 [Rx Last Taken 10/15/22] losartan 100 mg tablet 100 mg PO DAILY #90 tabs 10/31/21 [Rx Last Taken 10/13/22] pantoprazole 40 mg tablet,delayed release 40 mg PO DAILY #90 tabs 10/31/21 [Rx Last Taken 10/15/22] pravastatin 40 mg tablet 40 mg PO QHS #90 tabs 10/31/21 [Rx Last Taken 10/13/22] gabapentin 300 mg capsule 300 mg PO QHS NERVE PAIN 10/15/22 [History Last Taken 10/13/22] hydrochlorothiazide 25 mg tablet 25 mg PO DAILY PRN BP 10/15/22 [History Last Taken Unknown] omega-3 fatty acids-fish oil 300 mg-500 mg capsule 1 cap PO DAILY 10/15/22 [History Last Taken 10/13/22] Allergy/AdvReac Type Severity Reaction Status Date / Time atorvastatin [From Lipitor] AdvReac Intermediate aching Verified 10/15/22 16:24 muscles and joints Family History Mother CVA (cerebral vascular accident) Father Myocardial infarction Other Heart disease Hypertension Surgical History History of bilateral cataract extraction History of coronary artery stent placement (04/03/16) History of foot surgery History of left heart catheterization (09/18/19) History of nasal septoplasty History of shoulder surgery Social History Smoking Status: Former smoker how long ago did patient quit smokin years ago alcohol intake: current alcohol intake frequency: holidays/special occasions only Alcohol type: beer substance use type: does not use caffeine: Yes Type: coffee Number of servings: 2 ROS ROS ED Constitutional Constitutional ED: Denies chills or fever(s) Eyes Eyes: Denies blurry vision or change in vision ENT ENT ED: Denies rhinorrhea or sore throat Cardiovascular Cardiovascular: Denies chest pain or palpitations Respiratory/Chest Respiratory/Chest: Denies cough or dyspnea Gastrointestinal Gastrointestinal: Denies nausea or vomiting Genitourinary Genitourinary ED: Denies dysuria or hematuria Musculoskeletal Musculoskeletal: Reports back pain; Denies neck pain Integumentary Denies abscess or rash Neurologic Neurologic: Reports paresthesias RUE; Denies headache(s) or weakness Allergic/Immunologic Allergic/Immunologic ED: Denies mouth swelling or urticaria EXAM Physical Exam Const Vital Signs: 10/15/22 13:39 10/15/22 14:33 10/15/22 15:37 Temperature 97.6 F L Temperature Source Oral Pulse Rate 64 57 L Pulse Rate [Lying] 57 L Pulse Rate [Sitting (for 1 minute prior to obtaining)] 58 L Pulse Rate [Standing (for 1 minute prior to obtaining)] 60 Respiratory Rate 16 18 Blood Pressure 158/81 H 118/62 Blood Pressure [Lying] 129/69 H Blood Pressure [Sitting (for 1 minute prior to obtaining)] 132/71 H Blood Pressure [Standing (for 1 minute prior to obtaining)] 119/73 Blood Pressure Mean 106 80 Blood Pressure Mean [Lying] 89 Blood Pressure Mean [Sitting (for 1 minute prior to obtaining)] 91 Blood Pressure Mean [Standing (for 1 minute prior to obtaining)] 88 Pulse Ox 97 93 Oxygen Delivery Method Room Air 10/15/22 16:21 Temperature 97.9 F Temperature Source Temporal Pulse Rate 51 L Pulse Rate [Lying] Pulse Rate [Sitting (for 1 minute prior to obtaining)] Pulse Rate [Standing (for 1 minute prior to obtaining)] Respiratory Rate 18 Blood Pressure 168/89 H Blood Pressure [Lying] Blood Pressure [Sitting (for 1 minute prior to obtaining)] Blood Pressure [Standing (for 1 minute prior to obtaining)] Blood Pressure Mean 115 Blood Pressure Mean [Lying] Blood Pressure Mean [Sitting (for 1 minute prior to obtaining)] Blood Pressure Mean [Standing (for 1 minute prior to obtaining)] Pulse Ox 95 Oxygen Delivery Method Room Air Positive well nourished and well developed General Appearance ED: well developed HEENT Reports moist mucous membranes Eyes PERRL and EOMs intact bilaterally Eyes Narrative: There is no nystagmus noted. Neck supple and no JVD Resp normal respiratory effort and clear to auscultation bilaterally Cardio regular rate and regular rhythm GI normal to inspection, nondistended, normoactive bowel sounds and non-tender Palpation: soft Extremity normal to inspection General Extremety ED: Negative for edema or tenderness General Extremity: Negative for edema Neuro oriented x3, CN's II-XII intact bilaterally and no sensory deficits noted Sensorium / Orientation: alert Motor Exam: strength 5/5 throughout Psych mental status grossly normal Skin no rashes or lesions noted MDM MDM MDM Narrative Medical decision making narrative: Differential diagnosis includes cardiac dysrhythmia, cardiac ischemia, pulmonary embolism, TIA, paresthesias, cervical radiculopathy, lightheadedness, vertigo, labyrinthitis, urinary tract infection, anemia, and electrolyte abnormality. CT scan of the brain will be obtained to assess for stroke and intracranial bleeding. EKG will be obtained to assess for cardiac dysrhythmia and cardiac ischemia. CBC will be obtained to assess for leukocytosis and anemia. Comprehensive metabolic profile will be obtained to assess for electrolyte abnormality, renal function, and hepatic function. High-sensitivity troponin will be obtained to assess for cardiac ischemia. PT with INR and PTT will be obtained to assess for coagulopathy. Urinalysis will be obtained to assess for urinary tract infection and hematuria. D-dimer will be obtained to assess for pulmonary embolism. Lab Data Attestation: I reviewed the patient's lab results. Lab results narrative: CBC was reviewed and was within normal limits. BGT was reviewed and was 128. D-dimer was reviewed and was normal at less than 0.27. PT with INR and PTT were reviewed and were within normal limits. Comprehensive metabolic profile was reviewed and was within normal limits. High-sensitivity troponin was reviewed and was normal at 8. Urinalysis was reviewed. There is no evidence of urinary tract infection or hematuria. Labs: Laboratory Results - last 24 hr 10/15/22 10/15/22 10/15/22 13:40 13:49 14:45 WBC 9.3 RBC 5.27 Hgb 15.8 Hct 47.4 MCV 89.9 MCH 30.0 MCHC 33.3 RDW Std Deviation 47.8 H RDW Coeff of Bonita 14.6 Plt Count 209 MPV 10.4 Immature Gran % (Auto) 0.400 Neut % (Auto) 66.1 Lymph % (Auto) 21.8 Grand % (Auto) 9.3 Eos % (Auto) 1.8 Baso % (Auto) 0.6 Absolute Neuts (auto) 6.1 Absolute Lymphs (auto) 2.02 Nucleated RBC % 0 PT 13.9 INR 1.1 APTT 27.9 D-Dimer Quant (PE/DVT) < 0.27 L Sodium 140 Potassium 4.2 Chloride 109 H Carbon Dioxide 27.0 Anion Gap 4 L BUN 19 H Creatinine 1.17 Estim Creat Clear Calc 52.03 Est GFR (MDRD) Af Amer 78 Est GFR (MDRD) Non-Af 64 BUN/Creatinine Ratio 16.2 Glucose 103 Calcium 9.5 Total Bilirubin 0.60 AST 16 ALT 25 Alkaline Phosphatase 59 Troponin I High Sens 8 Total Protein 7.0 Albumin 3.6 Globulin 3.4 Albumin/Globulin Ratio 1.1 Urine Color Yellow Urine Clarity Sl. Cloudy Urine pH 6.0 Ur Specific [place] 1.025 Urine Protein 30 H Urine Glucose (UA) Normal Urine Ketones 5 H Urine Occult Blood Negative Urine Nitrite Negative Urine Bilirubin Negative Urine Urobilinogen 1 H Ur Leukocyte Esterase 25 H Urine RBC 0 SEEN Urine WBC 0-5 SEEN Ur Squamous Epith Cells 0 SEEN Urine Bacteria RARE Urine Mucus 0 SEEN POC Glucose 128 H Radiography Diagnostic Testing: Clinical Impression(s) from Imaging Studies Brain CT 10/15/22 14:04 IMPRESSION: Chronic involutional changes of the brain. Electronically Signed: Srikanth Pope MD at 14:34 EDT , CT scan of the brain was obtained. There is no acute intracranial abnormality. This was interpreted by the radiologist and was also independently reviewed by myself. EKG Initial EKG: Attestation: I personally reviewed and interpreted this EKG as follows: Interpretation: No Acute Injury Pattern and Sinus Bradycardia (54) Comments: EKG was obtained. On my independent interpretation, it showed a sinus bradycardia with a rate of 54. GA interval, QRS interval, and QTc intervals were all normal. There is left axis deviation at -42. There are no acute ST or T wave changes. There is voltage criteria for left ventricular hypertrophy. Prior EKG tracings: available for review Prior: Unchanged (09/12/2019) Management Discussion w/another healthcare provider: Hospitalist (Dr. Arriaga) Treatment and Re-Evaluation :: Patient is feeling better on reevaluation. Patient was advised of his findings. I recommended admission to the hospital for further TIA workup. Patient is agreeable with this. Case was discussed with the hospitalist, Dr. Arriaga. He will admit the patient to his service. Patient understood and was agreeable with the plan. All questions were answered. Discharge Plan Dx/Rx/DC Orders Clinical Impression: Essential (primary) hypertension, TIA (transient ischemic attack) Disposition Disposition: Acute Care Hospital [facility] Discharge Date/Time: 10/15/22 16:35
[2022-10-15 14:27] LABS: D-Dimer Quantitative (DVT/PE) < 0.27 FEU/ug/m (0.27-0.49)
[2022-10-15 14:33] LABS: ALB/GLOB Ratio 1.1 RATIO (0.9-2.4); AST(SGOT) 16 U/L (15-37); Alanine Aminotransfer ALT/SGPT 25 U/L (16-61); Albumin, Serum 3.6 g/dL (3.2-5.0); Alkaline Phosphatase 59 U/L (45-117); Anion Gap 4 (5-15); BUN 19 mg/dL (7-18); BUN/Creat Ratio 16.2 RATIO (10-20); Calcium,Total 9.5 mg/dL (8.5-10.1); Chloride 109 mmol/L (98-107); Creatinine, Serum 1.17 mg/dL (0.70-1.30); EST Glomerular Filtration Rate 64 mL/min (>60); Est Glom Filt Rate - Afr Amer 78 mL/min (>60); Estimated Creatinine Clearance 52.03 ml/min; Globulin 3.4 g/dL (2.2-4.2); Glucose 103 mg/dL (74-106); Potassium 4.2 mmol/L (3.5-5.1); Sodium Level 140 mmol/L (136-145); Troponin-I HS 8 pg/mL (3.0-78.0)
[2022-10-15 14:34] LABS: International Normalized Ratio 1.1; Prothrombin Time (Protime)PT. 13.9 SECONDS (11.7-14.9)
[2022-10-15 14:35] LABS: Partial Thromboplast Time 27.9 Seconds (24.1-36.2)
[2022-10-15 14:50] LABS: Mucous, Urine 0 SEEN /hpf (<or=2+); Red Blood Cells-Urine 0 SEEN /hpf (0-5); Squamous Epithelial Cells - UA 0 SEEN /hpf (0-5)
[2022-10-15 14:51] LABS: Color, Urine Yellow (Yellow); Glucose, Dipstick Normal (Normal); Ketone-Dipstick 5 mg/dl (Negative); Leukocyte Esterase-Dipstick 25 /ul (Negative); Nitrite-Dipstick Negative (Negative); Occult Blood-Urine Negative /ul (Negative); Protein-Dipstick 30 mg/dl (Negative); Specific Gravity, Urine 1.025 (1.002-1.030); Urine Bilirubin Dipstick Negative (Negative); Urine Clarity Sl. Cloudy (Clear); Urine Urobilinogen 1 mg/dl (Normal)
[2022-10-15 14:58] LABS: Bacteria RARE /hpf (None Seen); White Blood Cells 0-5 SEEN /hpf (0-5)
--- NOTE | 2022-10-15 16:34 | PCM.HP.STD ---
HPI - General General Date of Admission: 10/15/22 HPI Narrative JAMES PALMA, is a 77 M who presents to the hospital with 2 weeks worth of dizziness and then today developed right arm numbness which has already resolved. He has noticed that his dizziness occurs when he is changing position mostly and otherwise has very few problems with it. He denies any generalized weakness or any visual changes. He states that in June when he and his were in [place] he noticed left eye visual changes and he had an extensive workup down in [place] with an echo as well as her carotid artery evaluation and he states that everything came back normal, will request information. He did have orthostatic vital signs in the ER which were unremarkable and he denies any dizziness today. Lab work is also unremarkable. 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) Home Medications aspirin 81 mg tablet,delayed release (Adult Aspirin Regimen) 81 mg PO DAILY 09/13/19 [History Last Taken 10/13/22] celecoxib 200 mg capsule 200 mg PO DAILY 10/21/21 [History Last Taken 10/15/22] niacin 500 mg tablet 500 mg PO DAILY 10/21/21 [History Last Taken 10/13/22] carvedilol 25 mg tablet 25 mg PO BID #180 tabs 10/31/21 [Rx Last Taken 10/15/22] clopidogrel 75 mg tablet 75 mg PO DAILY #90 tabs 10/31/21 [Rx Last Taken 10/15/22] isosorbide mononitrate 30 mg tablet,extended release 24 hr 30 mg PO DAILY #90 tabs 10/31/21 [Rx Last Taken 10/15/22] losartan 100 mg tablet 100 mg PO DAILY #90 tabs 10/31/21 [Rx Last Taken 10/13/22] pantoprazole 40 mg tablet,delayed release 40 mg PO DAILY #90 tabs 10/31/21 [Rx Last Taken 10/15/22] pravastatin 40 mg tablet 40 mg PO QHS #90 tabs 10/31/21 [Rx Last Taken 10/13/22] gabapentin 300 mg capsule 300 mg PO QHS NERVE PAIN 10/15/22 [History Last Taken 10/13/22] hydrochlorothiazide 25 mg tablet 25 mg PO DAILY PRN BP 10/15/22 [History Last Taken Unknown] omega-3 fatty acids-fish oil 300 mg-500 mg capsule 1 cap PO DAILY 10/15/22 [History Last Taken 10/13/22] Allergy/AdvReac Type Severity Reaction Status Date / Time atorvastatin [From Lipitor] AdvReac Intermediate aching Verified 10/15/22 16:24 muscles and joints Family History Mother CVA (cerebral vascular accident) Father Myocardial infarction Other Heart disease Hypertension Surgical History History of bilateral cataract extraction History of coronary artery stent placement (04/03/16) History of foot surgery History of left heart catheterization (09/18/19) History of nasal septoplasty History of shoulder surgery Social History Smoking Status: Former smoker how long ago did patient quit smokin years ago alcohol intake: current alcohol intake frequency: holidays/special occasions only Alcohol type: beer substance use type: does not use caffeine: Yes Type: coffee Number of servings: 2 ROS Constitutional Constitutional: Denies chills, fatigue, fever(s) or malaise Eyes Eyes: Denies blurry vision ENT HEENT: Denies headache(s) or nasal discharge Cardiovascular Cardiovascular: Reports lightheadedness; Denies chest pain, dyspnea on exertion or syncope Respiratory/Chest Respiratory/Chest: Denies cough, shortness of breath at rest or shortness of breath with exertion Gastrointestinal Gastrointestinal: Denies constipation, diarrhea, nausea or vomiting Genitourinary Genitourinary: Denies dysuria Neurologic Neurologic: Reports numbness; Denies focal weakness or tremor(s) Psychiatric Psychiatric: Denies anxiety or depression Vital Signs Vital Signs Vital Signs: 10/15/22 13:39 10/15/22 14:33 10/15/22 15:37 Temperature 97.6 F L Temperature Source Oral Pulse Rate 64 57 L Pulse Rate [Lying] 57 L Pulse Rate [Sitting (for 1 minute prior to obtaining)] 58 L Pulse Rate [Standing (for 1 minute prior to obtaining)] 60 Respiratory Rate 16 18 Blood Pressure 158/81 H 118/62 Blood Pressure [Lying] 129/69 H Blood Pressure [Sitting (for 1 minute prior to obtaining)] 132/71 H Blood Pressure [Standing (for 1 minute prior to obtaining)] 119/73 Blood Pressure Mean 106 80 Blood Pressure Mean [Lying] 89 Blood Pressure Mean [Sitting (for 1 minute prior to obtaining)] 91 Blood Pressure Mean [Standing (for 1 minute prior to obtaining)] 88 Pulse Ox 97 93 Oxygen Delivery Method Room Air 10/15/22 16:21 Temperature 97.9 F Temperature Source Temporal Pulse Rate 51 L Pulse Rate [Lying] Pulse Rate [Sitting (for 1 minute prior to obtaining)] Pulse Rate [Standing (for 1 minute prior to obtaining)] Respiratory Rate 18 Blood Pressure 168/89 H Blood Pressure [Lying] Blood Pressure [Sitting (for 1 minute prior to obtaining)] Blood Pressure [Standing (for 1 minute prior to obtaining)] Blood Pressure Mean 115 Blood Pressure Mean [Lying] Blood Pressure Mean [Sitting (for 1 minute prior to obtaining)] Blood Pressure Mean [Standing (for 1 minute prior to obtaining)] Pulse Ox 95 Oxygen Delivery Method Room Air Weight Weight: 210 lb 1.608 oz Body Mass Index (BMI) 31.0 Physical Exam Narrative General: Alert, Oriented x3, Cooperative, No apparent distress HEENT: Atraumatic, PERRLA, EOMI, Normocephalic Oral: Moist Mucosa Neck: Supple, No JVD Lungs: Clear to auscultation, Normal air movement, No rhonchi, No wheeze, No rales Cardiovascular: Regular rate, Regular Rhythm, Normal S1, Normal S2, No murmurs Abdomen: Soft, Non Tender, Non-Distended, No Hepato-splenomegaly Extremities: No edema, Capillary Refill Less than 3 Seconds Skin: No rashes, No breakdown Musculoskeletal: No Tenderness to Palpation of Joints or Extremities Neurological: Cranial nerves II-XII grossly intact, Motor Exam 5/5 strength throughout, Sensory exam intact to light touch and pain Psych/Mental Status: Normal Affect, Appropriate Results Lab / Micro Data 10/15/22 13:40 10/15/22 13:40 Labs: Laboratory Results - last 24 hr 10/15/22 13:40: WBC 9.3, RBC 5.27, Hgb 15.8, Hct 47.4, MCV 89.9, MCH 30.0, MCHC 33.3, RDW Std Deviation 47.8 H, RDW Coeff of [place]ita 14.6, Plt Count 209, MPV 10.4, Immature Gran % (Auto) 0.400, Neut % (Auto) 66.1, Lymph % (Auto) 21.8, [place] % (Auto) 9.3, Eos % (Auto) 1.8, Baso % (Auto) 0.6, Absolute Neuts (auto) 6.1, Absolute Lymphs (auto) 2.02, Nucleated RBC % 0, PT 13.9, INR 1.1, APTT 27.9, D-Dimer Quant (PE/DVT) < 0.27 L, Sodium 140, Potassium 4.2, Chloride 109 H, Carbon Dioxide 27.0, Anion Gap 4 L, BUN 19 H, Creatinine 1.17, Estim Creat Clear Calc 52.03, Est GFR (MDRD) Af Amer 78, Est GFR (MDRD) Non-Af 64, BUN/Creatinine Ratio 16.2, Glucose 103, Calcium 9.5, Total Bilirubin 0.60, AST 16, ALT 25, Alkaline Phosphatase 59, Troponin I High Sens 8, Total Protein 7.0, Albumin 3.6, Globulin 3.4, Albumin/Globulin Ratio 1.1 10/15/22 13:49: POC Glucose 128 H 10/15/22 14:45: Urine Color Yellow, Urine Clarity Sl. Cloudy, Urine pH 6.0, Ur Specific [place] 1.025, Urine Protein 30 H, Urine Glucose (UA) Normal, Urine Ketones 5 H, Urine Occult Blood Negative, Urine Nitrite Negative, Urine Bilirubin Negative, Urine Urobilinogen 1 H, Ur Leukocyte Esterase 25 H, Urine RBC 0 SEEN, Urine WBC 0-5 SEEN, Ur Squamous Epith Cells 0 SEEN, Urine Bacteria RARE, Urine Mucus 0 SEEN Radiology Impression Brain CT 10/15/22 14:04 IMPRESSION: Chronic involutional changes of the brain. Electronically Signed: Srikanth Pope MD at 14:34 EDT , Assessment & Plan Assessment/Plan (1) TIA (transient ischemic attack): PLAN: Plan 1. TIA/CAD status post stent/HTN/HLD ? Symptoms have completely resolved ? Will obtain records from his outside hospital in [place] as he had an extensive workup 4 months ago ? We will only repeat an MRI here ? She is already on aspirin and Plavix ? Continue with his statin and blood pressure medications, he is on pravastatin because he is allergic to Lipitor 2. GERD ? Stable ? Continue with PPI DVT: Ambulation Charges/Coding Visit Charges Inpatient E&M: 64345 Init Hosp L2
--- NOTE | 2022-10-15 17:15 | MRI_ITS ---
We are attempting to reach an attending provider to discuss findings. An addendum with communication details will be sent when the communication is complete. STUDY: MRI BRAIN WITHOUT CONTRAST REASON FOR EXAM: Male, 77 years old. CVA, dizziness, R arm numbness TECHNIQUE: Standardized multiplanar fat and water weighted pulse sequences were obtained. COMPARISON: CT of the brain October 15, 2022 FINDINGS: Mild atrophy and periventricular white matter ischemic changes.. There are foci of increased signal intensity within left parietal and occipital lobes demonstrating restricted diffusion consistent with acute ischemic changes. There is also a tiny focus of restricted diffusion in the right frontal parietal region Normal bilateral basal ganglia. Normal thalami. There is no extra-axial fluid accumulation. Normal flow voids within the major intracranial circulation suggesting patency by spin echo criteria. Normal sella turcica, pituitary gland, infundibular stalk, optic chiasm and hypothalamus. Normal tectal plate and pineal gland. Normal midbrain, coty and medulla. Normal cerebellum. Normal basal cisterns. Normal bilateral temporal bones. Normal bilateral internal auditory canals. Postsurgical changes of the orbits. Normal visualized paranasal sinuses. Normal calvarium and skull base. Normal visualized soft tissue structures. Normal visualized upper cervical spine. MRI/Brain without Contrast IMPRESSION: Mild periventricular white matter ischemic changes. Small of acute ischemia within left parietal occipital lobes and right frontal parietal region raising question of embolic disease. Electronically Signed: Jeronimo Mahoney MD at 19:57 EDT ,
--- NOTE | 2022-10-15 20:14 | PCM.HOSP.N ---
Hospitalist Note [facility] contacted Hospitalist for review of MRI results with noted mild periventricular white matter ischemic changes, small of acute ischemia within left parietal occipital lobes and right frontal parietal region raising question of embolic disease.
[2022-10-15] MEDS: Gabapentin 300 MG Capsule PO (20:27)
[2022-10-15] MEDS: Pravastatin 40 MG Tablet PO (20:57)
[2022-10-16] VITALS (8 sets, daily range): BP systolic 124–142; BP diastolic 61–83; PULSE 49–58; RESP 16–18; TEMP 36.2–36.9; O2SAT 93–97; BMI 29.9
[2022-10-16 05:20] LABS: Absolute Lymphocyte Count 2.38 X10^3/uL (0.83-4.51); Absolute Neutrophil Count 5.3 X10^3/uL (2.0-7.7); Basophil# 0.04 X10^3/uL; Basophil% 0.5 % (0-1); Eosinophil# 0.15 X10^3/uL; Eosinophils% 1.8 % (0-5); Hematocrit 45.8 % (40-54); Hemoglobin 15.3 g/dL (13.0-16.5); Lymphocyte # 2.38 X10^3/ul (0.83-4.51); Lymphocyte % 28.1 % (19-41); Mean Corp Hgb Conc 33.4 g/dL (32-36); Mean Corpuscular Hgb 29.9 pg (27.0-32.0); Mean Corpuscular Volume 89.6 fL (80-94); Monocyte# 0.59 X10^3/uL; NRBC Flagged by Analyzer 0 % (0-5); Neutrophil # 5.29 X10^3/uL (2.7-7.7); Neutrophil % 62.2 % (47-70); Platelet Count 184 K/mm3 (150-450); RBC Distribution Width CV 14.6 % (11.6-14.6); RBC Distribution Width SD 47.8 fl (35.1-43.9); Red Blood Count 5.11 M/mm3 (4.6-6.2); White Blood Count 8.5 K/mm3 (4.4-11.0)
[2022-10-16 06:02] LABS: Anion Gap 6 (5-15); BUN 17 mg/dL (7-18); BUN/Creat Ratio 17.2 RATIO (10-20); Calcium,Total 9.6 mg/dL (8.5-10.1); Chloride 111 mmol/L (98-107); Cholesterol 147 mg/dL (200); Creatinine, Serum 0.99 mg/dL (0.70-1.30); EST Glomerular Filtration Rate 78 mL/min (>60); Est Glom Filt Rate - Afr Amer 94 mL/min (>60); Glucose 107 mg/dL (74-106); High Density Lipoprotein 31 mg/dL; Potassium 4.3 mmol/L (3.5-5.1); Sodium Level 140 mmol/L (136-145); Triglycerides 130 mg/dL; Very Low Density Lipoprotein 26 mg/dL (5-40)
[2022-10-16] MEDS: Losartan Potassium 100 MG Tablet PO (08:30)
[2022-10-16] MEDS: Pantoprazole Sodium 40 MG Tablet PO (08:31)
[2022-10-16] MEDS: Carvedilol 25 MG Tablet PO ×2 (08:31→20:48)
[2022-10-16] MEDS: Niacin SA 500 MG Tablet PO (08:31)
[2022-10-16] MEDS: Isosorbide Mononitrate 30 MG Tablet PO (08:31)
[2022-10-16] MEDS: Celecoxib 200 MG Capsule PO (08:32)
[2022-10-16] MEDS: Aspirin E.C. 81 MG Tablet PO (08:32)
[2022-10-16] MEDS: Omega-3 Acid Ethyl Esters 1 GM Capsule PO (08:32)
[2022-10-16] MEDS: Clopidogrel Bisulfate 75 MG Tablet PO (08:32)
--- NOTE | 2022-10-16 10:25 | ECHOD_ITS ---
Reason For Study: TIA/CVA Procedure This was a 2D Doppler, Color Flow transthoracic echocardiogram. The study was technically difficult. Contrast injection was performed. Exam performed portable in patient room. Left Ventricle Normal LV size. The estimated ejection fraction is 50 %. Mild hypokinesis of the apex, anteroseptal wall. Right Ventricle Normal RV size. Normal systolic function. Atria Normal left atrium. Normal right atrium. No doppler evidence for ASD. Bubble contrast study negative for right to left interatrial shunt. Mitral Valve There is no mitral valve stenosis. No mitral valve insufficiency. Tricuspid Valve There is no tricuspid stenosis. No tricuspid valve insufficiency. Unable to estimate RV systolic pressure due to inadequate jet, pulmonary artery pressure probably normal. Aortic Valve Trisinus/trileaflet aortic valve. There is no aortic stenosis. No aortic valve insufficiency. Pulmonic Valve There is no pulmonic valvular stenosis. No pulmonic valve insufficiency. Great Vessels Normal aortic root. Pericardium/Pleural No pericardial effusion. Medication Diluted definity 2ml given slow IV push to enhance endocardial definition. Performed a rapid injection of agitated mix of 9 cc saline and 1cc air to assess for atrial septal defect. MMode/2D Measurements & Calculations Ao root diam: 3.1 cm LAV(MOD-bp): 54.2 ml LVAd ap4: 33.8 cm2 LAV(MOD-bp) Indexed: 26.1 ml/m2 LVLd ap4: 9.4 cm LAV(MOD-sp2): 58.0 ml EDV(MOD-sp4): 100.6 ml LAV(MOD-sp4): 43.6 ml EDV(sp4-el): 103.7 ml LVAs ap4: 22.3 cm2 LVLs ap4: 8.3 cm ESV(MOD-sp4): 48.8 ml ESV(sp4-el): 50.7 ml EF(MOD-sp4): 51.5 % EF(sp4-el): 51.1 % SV(MOD-sp4): 51.8 ml SV(sp4-el): 53.0 ml LA A4 area: 15.2 cm2 LA dimension(2D): 2.8 cm TAPSE: 1.9 cm RA A4 area: 16.5 cm2 Time Measurements MV dec time: 0.34 sec Doppler Measurements & Calculations MV E max nathan: 53.9 cm/sec Lat Peak E' Nathan: 7.3 cm/sec Med Peak E' Nathan: 7.7 cm/sec MV A max nathan: 67.8 cm/sec E/E' lat: 7.4 E/E' med: 7.0 MV E/A: 0.79 MV V2 max: 81.4 cm/sec MV dec slope: 160.0 cm/sec2 Ao V2 max: 107.7 cm/sec MV max P.7 mmHg Ao max P.6 mmHg MV V2 mean: 44.2 cm/sec Ao V2 mean: 75.5 cm/sec MV mean P.90 mmHg Ao mean P.6 mmHg MV V2 VTI: 32.2 cm Ao V2 VTI: 23.1 cm AV (velocity ratio): 1.0 LV V1 max: 120.4 cm/sec PA V2 max: 140.2 cm/sec LV V1 max P.8 mmHg PA V2 mean: 77.3 cm/sec LV V1 mean P.0 mmHg LV V1 mean: 80.6 cm/sec LV V1 VTI: 23.6 cm ECHO/Echo Complete W/ Contrast Interpretation Summary The estimated ejection fraction is 50 %. Bubble contrast study negative for right to left interatrial shunt. Ordering Physician: Shameka Davenport Referring Physician: Jake Lopez Performed By: Beckie Cain RCS
--- NOTE | 2022-10-16 11:35 | CT_ITS ---
STUDY: CTA HEAD AND NECK WITH CONTRAST REASON FOR EXAM: Male, 77 years old. Arm weakness RADIATION DOSAGE (If Supplied By Facility): CTDIvol = ( 32.26 ) mGy, DLP = ( 1551.71 ) mGycm TECHNIQUE: CT angiography was performed with a multi-detector CT scanner. Data acquisition was obtained from the skull base through the vertex following intravenous administration of IV 100mL Isovue-370. MIP images were reconstructed from the axial data set. Post-processing of the angiographic images was performed, with multiplanar reformation and 3D reconstruction. Individualized dose optimization techniques were used for this CT. COMPARISON: No relevant priors. FINDINGS: Normal bilateral petrous carotid arteries. There is calcified plaque formation of the right cavernous carotid artery, without a cross-sectional luminal stenosis. Normal left cavernous carotid artery with a normal supraclinoid bifurcation. Normal right A1 segments of the anterior cerebral artery. Normal left A1 segments of the anterior cerebral artery. Normal intact anterior communicating artery (ACOM). Normal bilateral A2 segments of the anterior cerebral arteries. Normal right M1 and M2 segments of the middle cerebral arteries, with a normal M1 bifurcation. Normal left M1 and M2 segments of the middle cerebral arteries, with a normal M1 bifurcation. Normal right posterior communicating artery (PCOM). Normal left posterior communicating artery (PCOM). Normal bilateral vertebral arteries. Normal basilar artery with a normal basilar bifurcation. The visualized bilateral superior cerebellar (SCA) arteries are normal. Normal bilateral P1, P2 and visualized P3 segments of the posterior cerebral arteries. There is no demonstrated aneurysm of the [place]. Cerebral atrophy. Decreased attenuation in the periventricular distribution in keeping with third chronic microvascular disease. This is unchanged as compared to prior examination dated October 15, 2022. Focal calcification in the lower pole of the right lobe of the thyroid. Small cystic changes in the lower pole of the left lobe of the thyroid. AORTIC ARCH: There is atherosclerotic calcific plaque formation of the aortic arch and great vessels arising from the aortic arch, without a hemodynamically significant stenosis. There is a normal origin of the brachiocephalic, left common carotid, and left subclavian arteries. Atherosclerotic plaque formation at the origin of the left subclavian artery. RIGHT CAROTID ARTERIES: Normal right common carotid artery (CCA). Normal right common carotid bulb. Normal origin of the right internal carotid (ICA) artery without a hemodynamically significant stenosis. Normal visualized cervical portion of the right internal carotid artery. Normal origin of the right external carotid artery (ECA). LEFT CAROTID ARTERIES: Normal left common carotid artery (CCA). Normal left common carotid bulb. There is mild atherosclerotic plaque formation of the origin of the left internal carotid artery with less than 50% cross sectional diameter stenosis. Normal visualized cervical portion of the left internal carotid artery. Normal origin of the left external carotid artery (ECA). VERTEBRAL ARTERIES: There is enhancement within the bilateral vertebral arteries with a small left vertebral artery, and a dominant right vertebral artery. CT/CTA Head AND Neck W/ Contrast IMPRESSION: Minimal plaque at the origin of the left internal carotid artery. Electronically Signed: Srikanth Pope MD at 12:53 EDT ,
--- NOTE | 2022-10-16 11:40 | PN_ITS ---
Subjective Subjective Patient seen and examined. He was admitted with a complaint of RUE numbness and weakness which have now resolved. HE has no active complaints. REview of systems is otherwise negative. Objective Data Objective Data Vital Signs: Vital Signs Temp Pulse Resp BP Pulse Ox O2 Del Method 98.2 F 52 L 16 142/61 H 96 Room Air 10/16/22 09:00 10/16/22 10:00 10/16/22 10:00 10/16/22 10:00 10/16/22 10:00 10/16/22 10:00 Oxygen Delivery Method Room Air Weight: 203 lb 4.259 oz Body Mass Index (BMI) 29.9 Intake & Output: Intake and Output for Last 24 Hours 10/14/22 10/15/22 10/16/22 23:59 23:59 23:59 Intake Total 240 / 240 Balance 240 / 240 Lab / Micro Data 10/16/22 04:44 10/16/22 04:44 Labs: Laboratory Results - last 24 hr 10/15/22 13:40: WBC 9.3, RBC 5.27, Hgb 15.8, Hct 47.4, MCV 89.9, MCH 30.0, MCHC 33.3, RDW Std Deviation 47.8 H, RDW Coeff of [place] 14.6, Plt Count 209, MPV 10.4, Immature Gran % (Auto) 0.400, Neut % (Auto) 66.1, Lymph % (Auto) 21.8, [place] % (Auto) 9.3, Eos % (Auto) 1.8, Baso % (Auto) 0.6, Absolute Neuts (auto) 6.1, Absolute Lymphs (auto) 2.02, Nucleated RBC % 0, PT 13.9, INR 1.1, APTT 27.9, D- Dimer Quant (PE/DVT) < 0.27 L, Sodium 140, Potassium 4.2, Chloride 109 H, Carbon Dioxide 27.0, Anion Gap 4 L, BUN 19 H, Creatinine 1.17, Estim Creat Clear Calc 52.03, Est GFR (MDRD) Af Amer 78, Est GFR (MDRD) Non-Af 64, BUN/Creatinine Ratio 16.2, Glucose 103, Calcium 9.5, Total Bilirubin 0.60, AST 16, ALT 25, Alkaline Phosphatase 59, Troponin I High Sens 8, Total Protein 7.0, Albumin 3.6, Globulin 3.4, Albumin/Globulin Ratio 1.1 10/15/22 13:49: POC Glucose 128 H 10/15/22 14:45: Urine Color Yellow, Urine Clarity Sl. Cloudy, Urine pH 6.0, Ur Specific [place] 1.025, Urine Protein 30 H, Urine Glucose (UA) Normal, Urine Ketones 5 H, Urine Occult Blood Negative, Urine Nitrite Negative, Urine Bilirubin Negative, Urine Urobilinogen 1 H, Ur Leukocyte Esterase 25 H, Urine RBC 0 SEEN, Urine WBC 0-5 SEEN, Ur Squamous Epith Cells 0 SEEN, Urine Bacteria RARE, Urine Mucus 0 SEEN 10/16/22 04:44: WBC 8.5, RBC 5.11, Hgb 15.3, Hct 45.8, MCV 89.6, MCH 29.9, MCHC 33.4, RDW Std Deviation 47.8 H, RDW Coeff of [place] 14.6, Plt Count 184, MPV 10.0, Immature Gran % (Auto) 0.400, Neut % (Auto) 62.2, Lymph % (Auto) 28.1, [place] % (Auto) 7.0, Eos % (Auto) 1.8, Baso % (Auto) 0.5, Absolute Neuts (auto) 5.3, Absolute Lymphs (auto) 2.38, Nucleated RBC % 0, Sodium 140, Potassium 4.3, Chloride 111 H, Carbon Dioxide 23.0, Anion Gap 6, BUN 17, Creatinine 0.99, Estim Creat Clear Calc 61.50, Est GFR (MDRD) Af Amer 94, Est GFR (MDRD) Non-Af 78, BUN/Creatinine Ratio 17.2, Glucose 107 H, Calcium 9.6, Triglycerides 130, Cholesterol 147, LDL Cholesterol 90, VLDL Cholesterol 26, HDL Cholesterol 31 L Radiography Diagnostic Testing: Radiology Impression Brain CT 10/15/22 14:04 IMPRESSION: Chronic involutional changes of the brain. Electronically Signed: Srikanth Pope MD at 14:34 EDT , Brain MRI 10/15/22 17:15 IMPRESSION: Mild periventricular white matter ischemic changes. Small of acute ischemia within left parietal occipital lobes and right frontal parietal region raising question of embolic disease. Electronically Signed: Jeronimo Mahoney MD at 19:57 EDT , ADDENDUM: 10/15/222022 IMPRESSION: Mild periventricular white matter ischemic changes. Small of acute ischemia within left parietal occipital lobes and right frontal parietal region raising question of embolic disease. N.B. : The above Results were Read Back by Jeronimo Mahoney MD to Wilma Tony MD, and understanding confirmed on 10/15/2022 20:17:06 (ET). Electronically Signed: Jeronimo Mahoney MD at 19:57 EDT , Physical Exam Const alert, oriented x3 and no apparent distress General Appearance: cooperative HEENT normocephalic, head/scalp atraumatic and moist oral mucous membranes Eyes PERRL and EOMs intact bilaterally Neck no lymphadenopathy and supple Lymph Lymphatic: no lymphadenopathy noted and no lymphedema noted Resp normal respiratory effort, normal air movement and clear to auscultation bilaterally Cardio regular rate, regular rhythm, S1 normal heart sound, S2 normal heart sound and no murmurs GI normal to inspection, nondistended, normoactive bowel sounds, soft to palpation, non-tender and non-distended Extremity normal capillary refill, no clubbing, cyanosis or edema and no calf tenderness Skin General Skin Exam: no breakdown Neuro CN's II-XII intact bilaterally, no focal motor deficits, no sensory deficits noted and deep tendon reflexes 2+ bilaterally Motor Exam: strength 5/5 throughout Psych thought process normal, cooperative and affect normal Appearance: appropriate Assessment & Plan Assessment/Plan (1) TIA (transient ischemic attack): PLAN: Plan #Acute embolic CVA * admitted with RUE numbness and tingling * CT of the brain showed no acute pathology * MRI of the brain showed small acute ischemia within left parietal occipial lobes and right frontal parietal region raising question of embolic diseae * he had a presentation of a stroke in the left eye back in June 2022 in [place] and says he had a workup done and was placed on aspirin and plavix. * discussed with neurology; there is concern for embolic disease and possible autoimmune disease. * ESR, CRP and POLY ordered. * 2D echo ordered. * cardiology consulted per neurology recommendation. Cardiology to give recomme ndation about ELIZABETH. * will benefit from 30 day event monitor * CTA head and neck showed minimal plaque at the origin of the left internal carotid artery * on carvedilol and statin. On pravastatin 40mg qhs; unable to tolerate atorvastatin due to aching muscles and joints. * #Hypertension: on HCTZ and carvedilol as well as losartan. #GERD: on PPI #DVT prophylaxis: SCDs. Charges/Coding Visit Charges Inpatient E&M: 03610 Subs Hosp L2
[2022-10-16 12:00] LABS: Erythrocyte Sedimentation Rate 10 mm/hr (0-20)
[2022-10-16 12:24] LABS: CRP < 2.90 mg/L (0.0-3.0)
[2022-10-16 12:25] LABS: Hemoglobin A1c 5.5 % (3.8-5.6)
--- NOTE | 2022-10-16 12:54 | CON.PCM.CA_ITS ---
Assessment & Plan Assessment/Plan (1) TIA (transient ischemic attack): PLAN: Agree with echo with bubble study. I feel that neurologist's recommendation to consider switching to an oral anticoagulant instead of Plavix at a later date is reasonable as patient appears to have had more than 1 TIA event while on aspirin and Plavix. ELIZABETH is not going to change the management at this time unless the transthoracic echo with bubble study reveals something that requires further evaluation with ELIZABETH. It will be reasonable to do a 30-day estefany nt monitor to look for A-fib. (2) History of coronary artery stent placement: PLAN: Continue present management (3) Ischemic cardiomyopathy: PLAN: Compensated. Continue present management HPI Consult Data Date of Consult: 10/16/22 HPI Narrative Reason for Consultation: Embolic CVA HPI Narrative: JAMES PALMA, is a 77 M who presents with dizziness and right arm numbness. The dizziness was with certain positions. Orthostatic vitals were done in the emergency room and were negative. His symptoms have resolved. MRI of the brain was suggestive of embolic CVA. Patient has been on aspirin and Plavix for a few years. Neurology consult was requested and they are considering switching from Plavix to an oral anticoagulant at a later date. Patient's daily was reviewed and there is no evidence of atrial fibrillation on any other significant arrhythmias. Patient has had echocardiograms in the past but it does not appear to have been done with bubble study previously. Review of systems: All systems reviewed. All else is negative except that in HPI [facility] Medical History (Updated 10/15/22 @ 17:[address] 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) Home Medications aspirin 81 mg tablet,delayed release (Adult Aspirin Regimen) 81 mg PO DAILY 09/13/19 [History Last Taken 10/13/22] celecoxib 200 mg capsule 200 mg PO DAILY 10/21/21 [History Last Taken 10/15/22] niacin 500 mg tablet 500 mg PO DAILY 10/21/21 [History Last Taken 10/13/22] carvedilol 25 mg tablet 25 mg PO BID #180 tabs 10/31/21 [Rx Last Taken 10/15/22] clopidogrel 75 mg tablet 75 mg PO DAILY #90 tabs 10/31/21 [Rx Last Taken 10/15/22] isosorbide mononitrate 30 mg tablet,extended release 24 hr 30 mg PO DAILY #90 tabs 10/31/21 [Rx Last Taken 10/15/22] losartan 100 mg tablet 100 mg PO DAILY #90 tabs 10/31/21 [Rx Last Taken 10/13/22] pantoprazole 40 mg tablet,delayed release 40 mg PO DAILY #90 tabs 10/31/21 [Rx Last Taken 10/15/22] pravastatin 40 mg tablet 40 mg PO QHS #90 tabs 10/31/21 [Rx Last Taken 10/13/22] gabapentin 300 mg capsule 300 mg PO QHS NERVE PAIN 10/15/22 [History Last Taken 10/13/22] hydrochlorothiazide 25 mg tablet 25 mg PO DAILY PRN BP 10/15/22 [History Last Ta anh Unknown] omega-3 fatty acids-fish oil 300 mg-500 mg capsule 1 cap PO DAILY 10/15/22 [History Last Taken 10/13/22] Allergy/AdvReac Type Severity Reaction Status Date / Time atorvastatin [From Lipitor] AdvReac Intermediate aching Verified 10/15/22 16:24 muscles and joints Family History Mother CVA (cerebral vascular accident) Father Myocardial infarction Other Heart disease Hypertension Surgical History History of bilateral cataract extraction History of coronary artery stent placement (04/03/16) History of foot surgery History of left heart catheterization (09/18/19) History of nasal septoplasty History of shoulder surgery Social History Smoking Status: Former smoker how long ago did patient quit smokin years ago alcohol intake: current alcohol intake frequency: holidays/special occasions on ly Alcohol type: beer substance use type: does not use caffeine: Yes Type: coffee Number of servings: 2 Physical Exam Const alert and oriented x3 HEENT normocephalic Eyes no scleral icterus Resp normal respiratory effort Cardio regular rate Skin no rashes or lesions noted Psych mental status grossly normal Risk Stratification Risk Stratification Applicable: No Charges/Coding Visit Charges Inpatient E&M: 42802 Init Hosp L2 Objective Data Vital Signs: Vital Signs Temp Pulse Resp BP Pulse Ox O2 Del Method 98.2 F 52 L 16 142/61 H 96 Room Air 10/16/22 09:00 10/16/22 10:00 10/16/22 10:00 10/16/22 10:00 10/16/22 10:00 10/16/22 10:00 Oxygen Delivery Method Room Air Weight: 203 lb 4.259 oz Body Mass Index (BMI) 29.9 Intake & Output: Intake and Output for Last 24 Hours 10/14/22 10/15/22 10/16/22 23:59 23:59 23:59 Intake Total 240 / 240 Balance 240 / 240 Lab / Micro Data 10/16/22 04:44 10/16/22 04:44 Labs: Laboratory Results - last 24 hr 10/15/22 13:40: WBC 9.3, RBC 5.27, Hgb 15.8, Hct 47.4, MCV 89.9, MCH 30.0, MCHC 33.3, RDW Std Deviation 47.8 H, RDW Coeff of [place] 14.6, Plt Count 209, MPV 10.4, Immature Gran % (Auto) 0.400, Neut % (Auto) 66.1, Lymph % (Auto) 21.8, [place] % (Auto) 9.3, Eos % (Auto) 1.8, Baso % (Auto) 0.6, Absolute Neuts (auto) 6.1, Absolute Lymphs (auto) 2.02, Nucleated RBC % 0, PT 13.9, INR 1.1, APTT 27.9, D- Dimer Quant (PE/DVT) < 0.27 L, Sodium 140, Potassium 4.2, Chloride 109 H, Carbon Dioxide 27.0, Anion Gap 4 L, BUN 19 H, Creatinine 1.17, Estim Creat Clear Calc 52.03, Est GFR (MDRD) Af Amer 78, Est GFR (MDRD) Non-Af 64, BUN/Creatinine Ratio 16.2, Glucose 103, Calcium 9.5, Total Bilirubin 0.60, AST 16, ALT 25, Alkaline Phosphatase 59, Troponin I High Sens 8, Total Protein 7.0, Albumin 3.6, Globulin 3.4, Albumin/Globulin Ratio 1.1 10/15/22 13:49: POC Glucose 128 H 10/15/22 14:45: Urine Color Yellow, Urine Clarity Sl. Cloudy, Urine pH 6.0, Ur Specific [place] 1.025, Urine Protein 30 H, Urine Glucose (UA) Normal, Urine Ketones 5 H, Urine Occult Blood Negative, Urine Nitrite Negative, Urine Bili carter Negative, Urine Urobilinogen 1 H, Ur Leukocyte Esterase 25 H, Urine RBC 0 SEEN, Urine WBC 0-5 SEEN, Ur Squamous Epith Cells 0 SEEN, Urine Bacteria RARE, Urine Mucus 0 SEEN 10/16/22 04:44: WBC 8.5, RBC 5.11, Hgb 15.3, Hct 45.8, MCV 89.6, MCH 29.9, MCHC 33.4, RDW Std Deviation 47.8 H, RDW Coeff of [place] 14.6, Plt Count 184, MPV 10.0, Immature Gran % (Auto) 0.400, Neut % (Auto) 62.2, Lymph % (Auto) 28.1, [place] % (Auto) 7.0, Eos % (Auto) 1.8, Baso % (Auto) 0.5, Absolute Neuts (auto) 5.3, Absolute Lymphs (auto) 2.38, Nucleated RBC % 0, ESR 10, Sodium 140, Potassium 4.3, Chloride 111 H, Carbon Dioxide 23.0, Anion Gap 6, BUN 17, Creatinine 0.99, Estim Creat Clear Calc 61.50, Est GFR (MDRD) Af Amer 94, Est GFR (MDRD) Non-Af 78, BUN/Creatinine Ratio 17.2, Glucose 107 H, Hemoglobin A1c 5.5, Calcium 9.6, C-React Prot Ext Range < 2.90, Triglycerides 130, Cholesterol 147, LDL Cholesterol 90, VLDL Cholesterol 26, HDL Cholesterol 31 L Cardiology Labs/Tests 10/15/22 13:40: WBC 9.3, RBC 5.27, Hgb 15.8, Hct 47.4, MCV 89.9, MCH 30.0, MCHC 33.3, Plt Count 209, MPV 10.4, Immature Gran % (Auto) 0.400, Neut % (Auto) 66.1, Lymph % (Auto) 21.8, [place] % (Auto) 9.3, Eos % (Auto) 1.8, Baso % (Auto) 0.6, Absolute Neuts (auto) 6.1, Nucleated RBC % 0, PT 13.9, INR 1.1, APTT 27.9, D- Dimer Quant (PE/DVT) < 0.27 L, Sodium 140, Potassium 4.2, Chloride 109 H, Carbon Dioxide 27.0, Anion Gap 4 L, BUN 19 H, Creatinine 1.17, Est GFR (MDRD) Af Amer 78, Est GFR (MDRD) Non-Af 64, BUN/Creatinine Ratio 16.2, Glucose 103, Calcium 9.5, Total Bilirubin 0.60 10/15/22 14:45: Urine Color Yellow, Urine Clarity Sl. Cloudy, Urine pH 6.0, Ur Specific [place] 1.025, Urine Protein 30 H, Urine Glucose (UA) Normal, Urine Ketones 5 H, Urine Occult Blood Negative, Urine Nitrite Negative, Urine Bilirubin Negative, Urine Urobilinogen 1 H, Ur Leukocyte Esterase 25 H, Urine RBC 0 SEEN, Urine WBC 0-5 SEEN 10/16/22 04:44: WBC 8.5, RBC 5.11, Hgb 15.3, Hct 45.8, MCV 89.6, MCH 29.9, MCHC 33.4, Plt Count 184, MPV 10.0, Immature Gran % (Auto) 0.400, Neut % (Auto) 62.2, Lymph % (Auto) 28.1, [place] % (Auto) 7.0, Eos % (Auto) 1.8, Baso % (Auto) 0.5, Absolute Neuts (auto) 5.3, Nucleated RBC % 0, Sodium 140, Potassium 4.3, Chloride 111 H, Carbon Dioxide 23.0, Anion Gap 6, BUN 17, Creatinine 0.99, Est GFR (MDRD) Af Amer 94, Est GFR (MDRD) Non-Af 78, BUN/Creatinine Ratio 17.2, Glucose 107 H, Hemoglobin A1c 5.5, Calcium 9.6, Triglycerides 130, Cholesterol 147, LDL Cholesterol 90, VLDL Cholesterol 26, HDL Cholesterol 31 L Rhythm: EKG: ECHO: Stress Test: Cardiac Cath: PCI: CT Surgery: Holter monitor: EPS: PPM: CXR: Chest CT Scan: Radiography Diagnostic Testing: Radiology Impression Brain CT 10/15/22 14:04 IMPRESSION: Chronic involutional changes of the brain. Electronically Signed: Srikanth Pope MD at 14:34 EDT , Brain MRI 10/15/22 17:15 IMPRESSION: Mild periventricular white matter ischemic changes. Small of acute ischemia within left parietal occipital lobes and right frontal parietal region raising question of embolic disease. Electronically Signed: Jeronimo Mahoney MD at 19:57 EDT , ADDENDUM: 10/15/222022 IMPRESSION: Mild periventricular white matter ischemic changes. Small of acute ischemia within left parietal occipital lobes and right frontal parietal region raising question of embolic disease. N.B. : The above Results were Read Back by Jeronimo Mahoney MD to Wilma Tony MD, and understanding confirmed on 10/15/2022 20:17:06 (ET). Electronically Signed: Jeronimo Mahoney MD at 19:57 EDT , Head/Neck CTA 10/16/22 11:35 IMPRESSION: Minimal plaque at the origin of the left internal carotid artery. Electronically Signed: Srikanth Pope MD at 12:53 EDT ,
--- NOTE | 2022-10-16 15:13 | CASEMGMT ---
RN CM attempted to complete TREVIÑO form with patient. Patient sleeping and unable to complete form at this time. CM will attempt to complete TREVIÑO Form at later time.
--- NOTE | 2022-10-16 16:18 | CASEMGMT ---
VIJI CM in to complete TREVIÑO Form with patient. RN RIK explained TREVIÑO form to patient, patient voiced understanding. Patient signed TREVIÑO Form and filed in chart. Patient provided copy of signed TREVIÑO Form. Patient had no further questions or concerns at this time. Patient denies needs at discharge.
[2022-10-16] MEDS: Pravastatin 40 MG Tablet PO (20:48)
[2022-10-16] MEDS: Gabapentin 300 MG Capsule PO (20:48)
[2022-10-16] MEDS: Acetaminophen 325 MG Tablet 650 MG PO (21:40)
[2022-10-17] VITALS (7 sets, daily range): BP systolic 124–144; BP diastolic 60–88; PULSE 48–59; RESP 16–18; TEMP 35.9–36.6; O2SAT 95–97; BMI 29.9
[2022-10-17 06:05] LABS: Absolute Lymphocyte Count 2.15 X10^3/uL (0.83-4.51); Absolute Neutrophil Count 3.9 X10^3/uL (2.0-7.7); Basophil# 0.02 X10^3/uL; Basophil% 0.3 % (0-1); Eosinophil# 0.19 X10^3/uL; Eosinophils% 2.8 % (0-5); Lymphocyte # 2.15 X10^3/ul (0.83-4.51); Lymphocyte % 31.2 % (19-41); Mean Corp Hgb Conc 33.3 g/dL (32-36); Mean Corpuscular Hgb 30.2 pg (27.0-32.0); Mean Corpuscular Volume 90.7 fL (80-94); Mean Platelet Vol. 10.3 fl (6.2-12.0); Monocyte# 0.61 X10^3/uL; Monocyte% 8.9 % (0-10); NRBC Flagged by Analyzer 0 % (0-5); Neutrophil # 3.89 X10^3/uL (2.7-7.7); Neutrophil % 56.4 % (47-70); Platelet Count 170 K/mm3 (150-450); RBC Distribution Width CV 14.6 % (11.6-14.6); RBC Distribution Width SD 48.9 fl (35.1-43.9); Red Blood Count 4.96 M/mm3 (4.6-6.2); White Blood Count 6.9 K/mm3 (4.4-11.0)
[2022-10-17 06:44] LABS: Anion Gap 4 (5-15); BUN 19 mg/dL (7-18); BUN/Creat Ratio 16.5 RATIO (10-20); Calcium,Total 9.5 mg/dL (8.5-10.1); Chloride 108 mmol/L (98-107); Creatinine, Serum 1.15 mg/dL (0.70-1.30); EST Glomerular Filtration Rate 65 mL/min (>60); Est Glom Filt Rate - Afr Amer 79 mL/min (>60); Estimated Creatinine Clearance 52.94 ml/min; Glucose 101 mg/dL (74-106); Potassium 4.4 mmol/L (3.5-5.1); Sodium Level 139 mmol/L (136-145)
[2022-10-17] MEDS: Losartan Potassium 100 MG Tablet PO (09:36)
--- NOTE | 2022-10-17 14:05 | STRESSREP ---
Stress Test Report Date: 10/17/2022 Procedure: Pharmacologic stress nuclear imaging study Indications: Chest pain Consent: Per the patient Procedure: The patient underwent pharmacologic (Regadenoson) evaluation with a peak heart rate of 79 beats per minute (55%predicted maximal heart rate) and a peak blood pressure of 154/86 mmHg. The baseline ECG demonstrated normal sinus rhythm, occasional PACs. EKG during lexiscan infusion revealed no significant ischemic changes. EKG post infusion revealed no significant ischemic changes [There were no cardiac dysrhythmias pretest, during pharmacologic infusion, or recovery]. [There was no complaint of chest discomfort during pharmacologic infusion or recovery]. The examination was discontinued secondary to completion of protocol. Impression: 1. Lexiscan stress test test is negative for Lexiscan infusion induced EKG changes of ischemia. 2. Lexiscan stress test test is negative for Lexiscan infusion induced chest pain. 3. Results of the nuclear portion of the test is as below Myocardial perfusion imaging study: Technique: The patient was injected with 11.7 millicuries of technetium 99m Cardiolite and subsequently rest SPECT Cardiolite nuclear imaging was obtained in the horizontal long, vertical long, and short axis views. The patient underwent pharmacologic [Regadenoson 0.4mg] evaluation. Please see above for details. The patient was injected with 35.4 millicuries of technetium 99m Cardiolite and subsequently stress SPECT Cardiolite nuclear imaging was obtained in the horizontal long, vertical long, and short axis views. A gated Cardiolite study at peak stress was obtained. Interpretation: Rest and stress SPECT Cardiolite nuclear imaging status post realignment, normalization, and attenuation correction demonstrate [absent radioisotope uptake in the apex. No significant reversible defects suggestive of significant ischemia]. Gated images reveal apical hypokinesis. The reported LVEF is 46%. These findings are suggestive of prior apical myocardial infarction. Impression: 1. There is no evidence of significant ischemia. There is evidence of prior apical myocardial infarction. 2. Estimated ejection fraction is 46% with apical hypokinesis. This note was generated with [employer] software. It may contain incorrect words, spelling, and punctuation that were not noted in checking the note before signing.
--- NOTE | 2022-10-17 15:02 | DS.PCM_ITS ---
Providers Date of Admission: 10/15/22 Date of Discharge: 10/18/22 Primary Care Physician: Dr. Jake Lopez, Consultations 10/16/22 11:37 Consult: Cardiology Routine Consulting Provider: Ck Brito Reason for Consult: CVA, concern for paroxysmal afib EMERGENT Consult: No MD Notified: Yes Date Notified: 10/16/22 Time Notified: 11:38 Method of Notification: Text Reason For Visit: TIA PARESTHESIAS Diagnosis Discharge Diagnosis (1) TIA (transient ischemic attack): Status: Acute Code(s): G45.9 - Transient cerebral ischemic attack, unspecified Plan #Acute embolic CVA * admitted with RUE numbness and tingling * CT of the brain showed no acute pathology * MRI of the brain showed small acute ischemia within left parietal occipial lobes and right frontal parietal region raising question of embolic diseae * he had a presentation of a stroke in the left eye back in June 2022 in [place] and says he had a workup done and was placed on aspirin and plavix. * discussed with neurology; there is concern for embolic disease and possible autoimmune disease. * ESR, CRP and POLY ordered. * 2D echo ordered. * cardiology consulted per neurology recommendation. Cardiology to give recommendation about ELIZABETH. * will benefit from 30 day event monitor * CTA head and neck showed minimal plaque at the origin of the left internal carotid artery * on carvedilol and statin. On pravastatin 40mg qhs; unable to tolerate atorvastatin due to aching muscles and joints. * #Hypertension: on HCTZ and carvedilol as well as losartan. #GERD: on PPI #DVT prophylaxis: SCDs. Medications at Discharge Home Medications aspirin 81 mg tablet,delayed release (Adult Aspirin Regimen) 81 mg PO DAILY heart health 09/13/19 celecoxib 200 mg capsule 200 mg PO DAILY arthritis 10/21/21 niacin 500 mg tablet 500 mg PO DAILY supplement 10/21/21 carvedilol 25 mg tablet 25 mg PO BID blood pressure #180 tabs 10/31/21 clopidogrel 75 mg tablet 75 mg PO DAILY anti platelet #90 tabs 10/31/21 isosorbide mononitrate 30 mg tablet,extended release 24 hr 30 mg PO DAILY heart #90 tabs 10/31/21 losartan 100 mg tablet 100 mg PO DAILY blood pressure #90 tabs 10/31/21 pantoprazole 40 mg tablet,delayed release 40 mg PO DAILY reflux #90 tabs 10/31/21 pravastatin 40 mg tablet 40 mg PO QHS cholesterol #90 tabs 10/31/21 gabapentin 300 mg capsule 300 mg PO QHS NERVE PAIN 10/15/22 hydrochlorothiazide 25 mg tablet 25 mg PO DAILY PRN BP 10/15/22 omega-3 fatty acids-fish oil 300 mg-500 mg capsule 1 cap PO DAILY supplement 10/15/22 Hospital Course Operations None Procedures 2-D Echocardiogram Summary of Care Provided Minutes Spent on Discharge: 55 Hospital Course: Patient is a 77-year-old male with a past medical history as outlined was admitted through the ED on 10/15/2022 with a complaint of dizziness which have been going on for about 2 weeks. On the day of admission he developed right arm numbness which had resolved by the time he came to the ED. He denied any visual changes or any generalized weakness. Back in June 2022, he had noticed left visual changes while he was in [place] and had gone to the hospital and had an extensive work-up and was told that he had a stroke in the left eye. He also had carotid artery ultrasound and was also told it was normal. On admission, orthostatics were negative and dizziness had not recurred. He was admitted and managed for TIA. EKG showed no acute ST changes and CT of the brain showed no a cute intracranial pathology. Patient had MRI which showed a small acute ischemia within the left parietal occipital lobe and right frontal parietal region raising the question of embolic disease. Patient was already on aspirin and Plavix as well as high intensity statin. [facility]y was consulted and they reviewed patient. Neurology was concerned about embolic disease and possible autoimmune disease. ESR and CRP ordered were negative. POLY was also ordered which was pending at time of review. Cardiology was consulted. Neurology recommendation as the neurology wanted patient to have a ELIZABETH. CTA of the head and neck showed minimal plaque at the origin of the left internal carotid artery. Due to patient not being able to tolerate high intensity statin, he was on pravastatin 40 mg nightly. EF was 50% with mild hypokinesis of the apex and anterior septal wall with no evidence of ASD and bubble study being negative for right to left interatrial shunt. Cardiology reviewed patient and did not think that a ELIZABETH would change the management. Patient also subsequently complained of chest pain and he had a stress test which was negative for any evidence of acute ischemia but showed evidence of prior apical myocardial infarction and an estimated EF of 46% with apical hypokinesis. Neurology had recommended that patient be started on anticoagulation within a few days after the stroke due to concern about hemorrhagic transformation. Recommendation was because it was thought that the source was embolic. 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 This was discussed with cardiology who recommended that patient would follow-up in a week in the clinic and so his rhythm would be monitored then to see if there was any evidence of any arrhythmia to determine if he should be started on anticoagulation. I did call patient's PCP Dr. Jake Lopez and spoke to him on the phone and informed him that patient will be following up within a week and would need to be started on oral anticoagulation due to concerns about arrhythmias like A-fib causing the embolic stroke. He expressed understanding of this. Patient was discharged on 10/17/2022. He was also referred to neurology on outpatient basis and is to follow-up with cardiology and his PCP as well. Patient seen and examined prior to discharge. He had no complaints and had an uneventful night. Review of systems otherwise negative. Labs and vitals reviewed. Home medication reviewed and reconciled. Physical Exam Const alert, oriented x3 and no apparent distress General Appearance: cooperative, comfortable and well kempt HEENT normocephalic, head/scalp atraumatic, hearing grossly normal bilaterally and moist oral mucous membranes Mouth: oral and palatal mucosa normal Eyes PERRL, EOMs intact bilaterally and conjunctivae normal Neck no lymphadenopathy and supple Lymph Lymphatic: no lymphadenopathy noted and no lymphedema noted Resp normal respiratory effort, normal air movement, no retractions, no use of accessory muscles and clear to auscultation bilaterally Cardio regular rate, regular rhythm, S1 normal heart sound, S2 normal heart sound and no murmurs GI normal to inspection, nondistended, normoactive bowel sounds, soft to palpation, non-tender and non-distended Extremity normal to inspection, full ROM, no clubbing, cyanosis or edema and no calf tenderness Skin no rashes or lesions noted and no wounds General Skin Exam: no breakdown Neuro oriented x3, CN's II-XII intact bilaterally, moves all extremities, no focal motor deficits, no sensory deficits noted and deep tendon reflexes 2+ bilaterally Motor Exam: strength 5/5 throughout Psych thought process normal, cooperative and affect normal Appearance: appropriate Weight / BMI Weight Weight: 203 lb 4.259 oz Body Mass Index (BMI) 29.9 ABG / Lab / Microbiology Data 10/17/22 05:34 10/17/22 05:34 Laboratory: Laboratory Results - last 24 hr 10/17/22 05:34: WBC 6.9, RBC 4.96, Hgb 15.0, Hct 45.0, MCV 90.7, MCH 30.2, MCHC 33.3, RDW Std Deviation 48.9 H, RDW Coeff of Bonita 14.6, Plt Count 170, MPV 10.3, Immature Gran % (Auto) 0.400, Neut % (Auto) 56.4, Lymph % (Auto) 31.2, Kane % (Auto) 8.9, Eos % (Auto) 2.8, Baso % (Auto) 0.3, Absolute Neuts (auto) 3.9, Absolute Lymphs (auto) 2.15, Nucleated RBC % 0, Sodium 139, Potassium 4.4, Chloride 108 H, Carbon Dioxide 27.0, Anion Gap 4 L, BUN 19 H, Creatinine 1.15, Estim Creat Clear Calc 52.94, Est GFR (MDRD) Af Amer 79, Est GFR (MDRD) Non-Af 65, BUN/Creatinine Ratio 16.5, Glucose 101, Calcium 9.5 Radiography Diagnostic Testing: Radiology Impression Echocardiogram 10/16/22 10:25 Interpretation Summary The estimated ejection fraction is 50 %. Bubble contrast study negative for right to left interatrial shunt. Ordering Physician: Shameka Davenport Referring Physician: Jake Lopez Performed By: Beckie Cain RCS D/C Instructions Discharge Diet: Low fat / Low cholesterol Discharge Activity: Return to Normal Activity Weight Bearing Status: Weight bearing as tolerated Call your doctor if you observe: Fever of 101 or Higher, Dizziness, Swelling in the ankles and Chest pain Meaningful Use Info Meaningful Use Diagnoses (Choose all that apply): Ischemic CVA CVA Therapy Assessed for PT,OT and/or ST?: Yes Ischemic Stroke Antithrombotic order at d/c?: Yes Dx of Atrial fib/flutter?: No Anticoagulant at discharge?: No Reason anticoagulant not ordered: Treatment not Indicated Statins at discharge?: Yes Primary Dx Acute Ischemic CVA?: Yes IV thrombolytic ordered during stay?: No Reason IV thrombolytic not ordered: Treatment not Indicated Discharge Plan Admission Admit Date/Time: 10/15/22 16:23 Primary Reason for Your Visit: CVA Attending Provider: Shameka Davenport Primary Care Provider: Jake Lopez Consulting Providers: Lorenzo Arriaga Nagapradee Instructions Patient Instructions: Stroke: Self-Care Additional Instructions / Restrictions: to see neurology and PCP as well as cardiology on outpatient basis within 1 week for determination to be made about when to start anticoagulants. To wear the 30 day event monitor and to follow up with cardiology on outpatient basis. Discharge Orders/Prescriptions Prescriptions: Continued aspirin [Adult Aspirin Regimen] 81 mg tablet,delayed release (DR/EC) 81 mg PO DAILY celecoxib 200 mg capsule 200 mg PO DAILY niacin 500 mg tablet 500 mg PO DAILY gabapentin 300 mg capsule 300 mg PO QHS Patient Comments: take 1 capsule by mouth EVERY NIGHT hydrochlorothiazide 25 mg tablet 25 mg PO DAILY PRN (Reason: BP) omega-3 fatty acids-fish oil 300-500 mg capsule 1 cap PO DAILY Patient Comments: PT GETS 500 MG OTC AND TAKES DAILY. carvedilol 25 mg tablet 25 mg PO BID Qty: 180 3RF Rx Instructions: must administer with a meal/food clopidogrel 75 mg tablet 75 mg PO DAILY Qty: 90 3RF isosorbide mononitrate 30 mg tablet extended release 24 hr 30 mg PO DAILY Qty: 90 3RF losartan 100 mg tablet 100 mg PO DAILY Qty: 90 3RF pantoprazole 40 mg tablet,delayed release (DR/EC) 40 mg PO DAILY Qty: 90 3RF pravastatin 40 mg tablet 40 mg PO QHS Qty: 90 3RF Other Ambulatory Orders: 30 Day Event Recorder Preventi (Urgent) Timeframe: 1 Day Facility: [facility] - Location: Cardiovascular Services Ordered By: Dr. Shameka Davenport Referrals / Follow Up: Jake Lopez DO [Primary Care Provider] - Within 1 Week Ck Brito MD [Med Staff - Active Staff] - In 1 Week (Follow up Cardiology 1 wk. for start of anticoagulants ) Valeriy Maria MD [Non-Staff -Ordering Privileges] - Within 1 Week (see to establish care for stroke) Disposition Disposition (needs filled in before D/C Order can be placed): Home, Self Care Charges/Coding Visit Charges Inpatient E&M: 79889 Disch Hosp >30min
--- NOTE | 2022-10-17 15:55 | NURSING ---
patient discharged home per orders. transported patient via private car.
[2022-10-19 14:08] LABS: ANTINUCLEAR ANTIBODIES DIRECT Negative (Negative)
== END 2022-10-17 15:49 | disposition home or self-care (01) ==
LOC: ED 16:03 → PCU 16:44
PROVIDERS: Admitting Provider Family Medicine; Emergency Provider Emergency Medicine; PCP Family Medicine; Visit Provider Student in an Organized Health Care Education/Training Program
DX: I63.232 Cerebral infarction due to unspecified occlusion or stenosis of left carotid arteries (principal); Z79.02 Long term (current) use of antithrombotics/antiplatelets; Z79.82 Long term (current) use of aspirin; R07.9 Chest pain, unspecified; I25.5 Ischemic cardiomyopathy; I10 Essential (primary) hypertension; E78.5 Hyperlipidemia, unspecified; I25.10 Atherosclerotic heart disease of native coronary artery without angina pectoris; Z87.891 Personal history of nicotine dependence; R42 Dizziness and giddiness; R20.2 Paresthesia of skin; R20.0 Anesthesia of skin; I25.2 Old myocardial infarction; Z79.899 Other long term (current) drug therapy; K21.9 Gastro-esophageal reflux disease without esophagitis
CPT/HCPCS: 36415; 70450; 70496; 70498; 70551; 78452; 80048; 80053; 80061; 81001; 82962; 83036; 84484; 85025; 85379; 85610; 85652; 85730; 86038; 86140; 86225; 86235; 93005; 93017; 93306; 94762; 97802; 99221; 99285; A9500; Q9957; Q9967; A4216; C8929; G0378; J2785

== ENCOUNTER → 2023-11-26 | Outpatient (CLI) | payer MEDICARE, OTHER, SELFPAY ==
[2023-11-26 16:57] LABS: Absolute Lymphocyte Count 1.66 X10^3/uL (0.83-4.51); Basophil# 0.04 X10^3/uL; Basophil% 0.5 % (0-1); Eosinophil# 0.11 X10^3/uL; Eosinophils% 1.5 % (0-5); Hematocrit 47.1 % (40-54); Hemoglobin 15.3 g/dL (13.0-16.5); Lymphocyte # 1.66 X10^3/ul (0.83-4.51); Lymphocyte % 22.4 % (19-41); Mean Corp Hgb Conc 32.5 g/dL (32-36); Mean Corpuscular Hgb 28.8 pg (27.0-32.0); Mean Corpuscular Volume 88.7 fL (80-94); Mean Platelet Vol. 11.4 fl (6.2-12.0); Monocyte# 0.58 X10^3/uL; Monocyte% 7.8 % (0-10); NRBC Flagged by Analyzer 0 % (0-5); Neutrophil # 5.01 X10^3/uL (2.7-7.7); Neutrophil % 67.5 % (47-70); Platelet Count 217 K/mm3 (150-450); RBC Distribution Width CV 14.8 % (11.6-14.6); RBC Distribution Width SD 48.5 fl (35.1-43.9); Red Blood Count 5.31 M/mm3 (4.6-6.2); White Blood Count 7.4 K/mm3 (4.4-11.0)
[2023-11-26 17:15] LABS: ALB/GLOB Ratio 1.1 RATIO (0.9-2.4); AST(SGOT) 18 U/L (15-37); Alanine Aminotransfer ALT/SGPT 27 U/L (16-61); Albumin, Serum 3.8 g/dL (3.2-5.0); Alkaline Phosphatase 82 U/L (45-117); Anion Gap 7 (5-15); BUN 14 mg/dL (7-18); BUN/Creat Ratio 15.1 RATIO (10-20); Calcium,Total 9.3 mg/dL (8.5-10.1); Chloride 112 mmol/L (98-107); Cholesterol 153 mg/dL (200); Creatinine, Serum 0.93 mg/dL (0.70-1.30); EST Glomerular Filtration Rate 83 mL/min (>60); Est Glom Filt Rate - Afr Amer 101 mL/min (>60); Globulin 3.6 g/dL (2.2-4.2); Glucose 104 mg/dL (74-106); High Density Lipoprotein 29 mg/dL; Potassium 4.2 mmol/L (3.5-5.1); Protein, Total 7.4 g/dL (6.4-8.2); Sodium Level 140 mmol/L (136-145); Triglycerides 139 mg/dL; Very Low Density Lipoprotein 28 mg/dL (5-40)
== END | disposition home or self-care (01) ==
LOC: BFHLAB 13:58
PROVIDERS: PCP Family Medicine; Visit Provider Family Medicine
DX: I25.10 Atherosclerotic heart disease of native coronary artery without angina pectoris (principal); I10 Essential (primary) hypertension
CPT/HCPCS: 36415; 80053; 80061; 85025

== ENCOUNTER → 2024-07-05 | Outpatient (CLI) | payer MEDICARE, OTHER, SELFPAY ==
[2024-07-05 11:48] LABS: Absolute Lymphocyte Count 1.89 X10^3/uL (0.83-4.51); Absolute Neutrophil Count 4.6 X10^3/uL (2.0-7.7); Basophil# 0.03 X10^3/uL; Basophil% 0.4 % (0-1); Eosinophil# 0.13 X10^3/uL; Eosinophils% 1.8 % (0-5); Hematocrit 45.1 % (40-54); Hemoglobin 15.3 g/dL (13.0-16.5); Lymphocyte # 1.89 X10^3/ul (0.83-4.51); Lymphocyte % 25.9 % (19-41); Mean Corp Hgb Conc 33.9 g/dL (32-36); Mean Corpuscular Hgb 29.7 pg (27.0-32.0); Mean Corpuscular Volume 87.4 fL (80-94); Mean Platelet Vol. 10.3 fl (6.2-12.0); Monocyte# 0.65 X10^3/uL; Monocyte% 8.9 % (0-10); NRBC Flagged by Analyzer 0 % (0-5); Neutrophil # 4.59 X10^3/uL (2.7-7.7); Neutrophil % 62.7 % (47-70); Platelet Count 193 K/mm3 (150-450); RBC Distribution Width CV 14.6 % (11.6-14.6); RBC Distribution Width SD 46.8 fl (35.1-43.9); Red Blood Count 5.16 M/mm3 (4.6-6.2); White Blood Count 7.3 K/mm3 (4.4-11.0)
[2024-07-05 12:49] LABS: ALB/GLOB Ratio 1.5 RATIO (0.9-2.4); AST(SGOT) 24 U/L (<=37); Alanine Aminotransfer ALT/SGPT 21 U/L (<=46); Albumin, Serum 4.1 g/dL (3.4-4.8); Alkaline Phosphatase 69 U/L (40-129); Anion Gap 10 (5-15); BUN 14 mg/dL (4-19); BUN/Creat Ratio 13.3 RATIO (10-20); Calcium,Total 9.6 mg/dL (7.6-11.0); Carbon Dioxide 21.7 mmol/L (21.0-32.0); Chloride 109 mmol/L (98-108); Cholesterol 145 mg/dL (<=200); Creatinine, Serum 1.04 mg/dL (0.70-1.20); EST Glomerular Filtration Rate 73 (>60); Globulin 2.7 g/dL (2.2-4.2); Glucose 93 mg/dL (70-99); High Density Lipoprotein 28 mg/dL; Low Density Lipoprotein Calc. 87 mg/dL; Potassium 4.1 mmol/L (3.3-5.1); Protein, Total 6.8 g/dL (5.9-8.4); Sodium Level 141 mmol/L (133-145); Triglycerides 151 mg/dL; Very Low Density Lipoprotein 30 mg/dL (5-40); cholesterol:hdl ratio screen 5.14
== END | disposition home or self-care (01) ==
LOC: LAB 11:06
PROVIDERS: PCP Family Medicine; Referring Provider Family Medicine; Visit Provider Family Medicine
DX: I25.10 Atherosclerotic heart disease of native coronary artery without angina pectoris (principal); I10 Essential (primary) hypertension; E78.5 Hyperlipidemia, unspecified
CPT/HCPCS: 36415; 80053; 80061; 85025